=== PATIENT | female | born 1960 | race African-American/Black ===

== ENCOUNTER 2016-03-06 11:24 | Emergency (ER) | payer MEDICAID ==
[~2016-03-06] VITALS: Ht 162.6 cm; Wt 76.2 kg
[2016-03-06] MEDS ORDERED: SODIUM CHLORIDE 0.9% 1,000 ML IVB ONE (12:44)
[2016-03-06 12:45] LABS: Basophils # (auto) 0 uL; Basophils % (auto) 0.4 % (0.0-2.0); Eosinophils # (auto) 0.1 uL; Eosinophils % (auto) 1.1 % (0.0-7.0); Hematocrit 37.3 % (36.0-46.0); Hemoglobin 12.4 g/dL (12.2-16.2); Lymphocytes # (auto) 3.1 uL; Mean Corpuscular Hemoglobin 30.5 pg (28.0-32.0); Mean Corpuscular Hgb Conc. 33.2 g/dL (32.0-36.0); Mean Corpuscular Volume 91.8 fL (80.0-100.0); Monocytes # (auto) 0.8 uL; Monocytes % (auto) 10.6 % (0.0-12.0); Neutrophils # (auto) 3.7 uL; Neutrophils % (auto) 47.9 % (37.0-80.0); Platelet Count (auto) 246 10^3/uL (140-450); Red Cell Distribution Width 15.3 % (11.6-16.0); White Blood Cell 7.8 10^3/uL (4.4-10.8)
[2016-03-06] MEDS ORDERED: HYDROmorphone HCL 2 MG/ML VL IV ONE (12:45)
[2016-03-06] MEDS ORDERED: PROMETHAZINE HCL 25 MG/ML 1ML IV ONE (12:45)
[2016-03-06 13:06] LABS: Albumin 3.7 g/dL (3.4-5.0); BUN/Creatinine Ratio 16.3; Calcium 8.4 mg/dL (8.5-10.1); Potassium 4.2 mmol/L (3.5-5.1)
[2016-03-06 13:08] LABS: Bilirubin, Total 0.3 mg/dL (0.2-1.0); Magnesium 2.1 mg/dL (1.6-2.6); Total Protein 6.7 g/dL (6.4-8.2)
[2016-03-06 13:18] LABS: Urine Bilirubin Negative (Negative); Urine Blood TRACE /uL (Negative); Urine Color Yellow (Yellow); Urine Glucose Normal (Normal); Urine Ketone Negative (Negative); Urine Nitrite Negative (Negative); Urine RBC 2 /hpf (0 - 4); Urine Squamous Epithelial Cell FEW /hpf (<5); Urine Urobilinogen Normal (Negative); Urine pH 5.5 (5.0-8.0)
[2016-03-06 14:35] VITALS: BP 131/91
== END 2016-03-06 15:00 | disposition home or self-care (01) ==
LOC: ER 11:24
DX: R10.31 Right lower quadrant pain (principal)
CPT/HCPCS: 36415; 71020; 74176; 80053; 81001; 83690; 83735; 85025; 93005; 96361; 96374; 96375; 99285; J1170; J2550; J7030

== ENCOUNTER 2016-03-07 19:24 | Emergency (ER) | payer MEDICAID ==
[~2016-03-07] VITALS: Ht 162.6 cm; Wt 76.2 kg
[2016-03-07 21:15] LABS: Basophils # (auto) 0 uL; Basophils % (auto) 0.4 % (0.0-2.0); Eosinophils # (auto) 0.1 uL; Eosinophils % (auto) 1.3 % (0.0-7.0); Hemoglobin 12.7 g/dL (12.2-16.2); Lymphocytes # (auto) 4.7 uL; Lymphocytes % (auto) 53.1 % (10.0-50.0); Mean Corpuscular Hemoglobin 30.2 pg (28.0-32.0); Mean Corpuscular Hgb Conc. 32.5 g/dL (32.0-36.0); Mean Corpuscular Volume 92.9 fL (80.0-100.0); Mean Platelet Volume 9.4 fL (7.4-10.4); Monocytes # (auto) 0.7 uL; Monocytes % (auto) 7.8 % (0.0-12.0); Neutrophils # (auto) 3.3 uL; Neutrophils % (auto) 37.4 % (37.0-80.0); Platelet Count (auto) 281 10^3/uL (140-450); Red Cell Distribution Width 15.4 % (11.6-16.0); White Blood Cell 8.8 10^3/uL (4.4-10.8)
[2016-03-07 21:28] LABS: Albumin 3.8 g/dL (3.4-5.0); BUN/Creatinine Ratio 11.5; Calcium 8.7 mg/dL (8.5-10.1); Magnesium 2.1 mg/dL (1.6-2.6); Potassium 4.2 mmol/L (3.5-5.1)
[2016-03-07 21:30] LABS: Bilirubin, Total 0.2 mg/dL (0.2-1.0)
[2016-03-07 21:38] LABS: INR 1.01 (0.9-1.15); Partial Thromboplastin Time 26.7 sec (22.64-33.71); Prothrombin Time 10.4 sec (9.37-12.3)
[2016-03-08] MEDS ORDERED: KETOROLAC TROMETH 30 MG/ML 1ML VIAL IV ONE (07:00)
[2016-03-08] MEDS ORDERED: ONDANSETRON HCL 4 MG/2 ML VIAL IV ONE (07:15)
[2016-03-08 08:23] VITALS: BP 133/65
== END 2016-03-08 10:02 | disposition home or self-care (01) ==
LOC: ER 19:55
DX: R10.9 Unspecified abdominal pain (principal); J45.909 Unspecified asthma, uncomplicated; F12.10 Cannabis abuse, uncomplicated; F17.210 Nicotine dependence, cigarettes, uncomplicated; Z87.442 Personal history of urinary calculi; M79.7 Fibromyalgia; R11.2 Nausea with vomiting, unspecified; R50.9 Fever, unspecified
CPT/HCPCS: 36415; 71010; 74000; 80053; 83735; 84484; 85025; 85379; 85610; 85730; 93005; 96374; 96375; 99285; J1885; J2405

== ENCOUNTER 2016-04-30 09:11 | Emergency (ER) | payer MEDICAID ==
[~2016-04-30] VITALS: Ht 165.1 cm; Wt 76.2 kg
[2016-04-30 09:18] VITALS: BP 135/91
[2016-04-30 10:31] LABS: Basophils # (auto) 0 uL; Basophils % (auto) 0.5 % (0.0-2.0); Eosinophils # (auto) 0.2 uL; Eosinophils % (auto) 2.5 % (0.0-7.0); Hematocrit 40.4 % (36.0-46.0); Hemoglobin 13.3 g/dL (12.2-16.2); Lymphocytes # (auto) 3.8 uL; Lymphocytes % (auto) 52.1 % (10.0-50.0); Mean Corpuscular Hemoglobin 31.1 pg (28.0-32.0); Mean Corpuscular Hgb Conc. 32.9 g/dL (32.0-36.0); Mean Corpuscular Volume 94.5 fL (80.0-100.0); Mean Platelet Volume 9.3 fL (7.4-10.4); Monocytes # (auto) 0.9 uL; Monocytes % (auto) 12.1 % (0.0-12.0); Neutrophils # (auto) 2.4 uL; Neutrophils % (auto) 32.8 % (37.0-80.0); Platelet Count (auto) 256 10^3/uL (140-450); Red Cell Distribution Width 14.4 % (11.6-16.0); White Blood Cell 7.2 10^3/uL (4.4-10.8)
[2016-04-30 10:42] LABS: Albumin 3.9 g/dL (3.4-5.0); Alkaline Phosphatase 87 U/L (45-117); Aspartate Aminotransferase 25 U/L (15-37); BUN/Creatinine Ratio 11.9; Bilirubin, Total 0.3 mg/dL (0.2-1.0); Blood Urea Nitrogen 13 mg/dL (7-18); Calcium 8.5 mg/dL (8.5-10.1); Carbon Dioxide 24 mmol/L (21-32); GFR African American 67 mL/min; GFR Non-African American 55 mL/min; Glucose 97 mg/dL (74-106); Magnesium 2.3 mg/dL (1.6-2.6); Total Protein 7.2 g/dL (6.4-8.2)
[2016-04-30 10:53] LABS: Anion Gap 7 (5-15); Chloride 110 mmol/L (98-107); Potassium 4.4 mmol/L (3.5-5.1); Sodium 141 mmol/L (136-145)
[2016-04-30] MEDS ORDERED: KETOROLAC TROMETH 60MG/2ML VIAL IM ONE (11:00)
== END 2016-04-30 11:15 | disposition home or self-care (01) ==
LOC: ER 09:11
DX: S29.011A Strain of muscle and tendon of front wall of thorax, initial encounter (principal); S39.012A Strain of muscle, fascia and tendon of lower back, initial encounter; J45.909 Unspecified asthma, uncomplicated; F12.10 Cannabis abuse, uncomplicated; F17.210 Nicotine dependence, cigarettes, uncomplicated; X50.9XXA Other and unspecified overexertion or strenuous movements or postures, initial encounter; Y93.89 Activity, other specified; Y99.8 Other external cause status; Y92.098 Other place in other non-institutional residence as the place of occurrence of the external cause
CPT/HCPCS: 36415; 71020; 80053; 83735; 84484; 85025; 93005; 96372; 99285; J1885

== ENCOUNTER 2016-05-16 12:35 | Emergency (ER) | payer MEDICAID ==
[~2016-05-16] VITALS: Ht 162.6 cm; Wt 76.2 kg
[2016-05-16 12:52] VITALS: BP 99/61
== END 2016-05-16 15:23 | disposition left against medical advice (07) ==
LOC: ER 12:35
DX: M54.9 Dorsalgia, unspecified (principal); R11.2 Nausea with vomiting, unspecified; Z53.21 Procedure and treatment not carried out due to patient leaving prior to being seen by health care provider
CPT/HCPCS: 74176

== ENCOUNTER 2016-05-16 18:44 | Observation (INO) | payer MEDICAID ==
[~2016-05-16] VITALS: Ht 165.1 cm; Wt 76.2 kg
[2016-05-16 20:11] LABS: Basophils # (auto) 0.1 uL; Basophils % (auto) 0.7 % (0.0-2.0); Eosinophils # (auto) 0.1 uL; Eosinophils % (auto) 1.2 % (0.0-7.0); Hematocrit 39.7 % (36.0-46.0); Hemoglobin 13.3 g/dL (12.2-16.2); Lymphocytes % (auto) 48.6 % (10.0-50.0); Mean Corpuscular Hemoglobin 31.7 pg (28.0-32.0); Mean Corpuscular Hgb Conc. 33.4 g/dL (32.0-36.0); Mean Corpuscular Volume 94.8 fL (80.0-100.0); Mean Platelet Volume 9.4 fL (7.4-10.4); Monocytes # (auto) 0.8 uL; Monocytes % (auto) 9.4 % (0.0-12.0); Neutrophils # (auto) 3.3 uL; Neutrophils % (auto) 40.1 % (37.0-80.0); Platelet Count (auto) 267 10^3/uL (140-450); Red Cell Distribution Width 13.4 % (11.6-16.0); White Blood Cell 8.3 10^3/uL (4.4-10.8)
[2016-05-16 20:22] LABS: Urine Bilirubin Negative (Negative); Urine Blood TRACE /uL (Negative); Urine Color Yellow (Yellow); Urine Glucose Normal (Normal); Urine Ketone Negative (Negative); Urine Nitrite Negative (Negative); Urine RBC 6 /hpf (0 - 4); Urine Squamous Epithelial Cell FEW /hpf (<5); Urine Urobilinogen Normal (Negative)
[2016-05-16 20:30] LABS: Albumin 4.1 g/dL (3.4-5.0); BUN/Creatinine Ratio 11.2; Calcium 9.1 mg/dL (8.5-10.1)
[2016-05-16 20:33] LABS: Bilirubin, Total 0.3 mg/dL (0.2-1.0); Total Protein 7.4 g/dL (6.4-8.2)
[2016-05-16] MEDS ORDERED: ONDANSETRON HCL 4 MG/2 ML VIAL IV ONE (23:45)
[2016-05-16] MEDS ORDERED: SODIUM CHLORIDE 0.9% 1,000 ML IV ONE (23:45)
[2016-05-16] MEDS ORDERED: HYDROmorphone HCL 2 MG/ML VL IV ONE (23:45)
[2016-05-17 00:22] VITALS: BP 117/70
== END 2016-05-17 01:57 | disposition home or self-care (01) | DRG 251 ==
LOC: ER 18:44 → OVERFLOW 18:45 → UNDOADMOB 18:45 → OVERFLOW 23:46 → ER 05-17 01:57 → UNDODISOB 05-17 01:57
PROVIDERS: ADMIT Emergency Medicine; ATTEND Emergency Medicine
DX: R10.31 Right lower quadrant pain (principal); F17.210 Nicotine dependence, cigarettes, uncomplicated; K58.9 Irritable bowel syndrome, unspecified; J45.909 Unspecified asthma, uncomplicated; R11.2 Nausea with vomiting, unspecified; R30.0 Dysuria; R31.9 Hematuria, unspecified; R50.9 Fever, unspecified; Z90.710 Acquired absence of both cervix and uterus; Z87.442 Personal history of urinary calculi
CPT/HCPCS: 36415; 74176; 80053; 81001; 82150; 83690; 85025; 93005; 96361; 96374; 96375; G0378; J2405

== ENCOUNTER 2016-05-23 12:29 | Emergency (ER) | payer MEDICAID ==
[~2016-05-23] VITALS: Ht 165.1 cm; Wt 71.7 kg
[2016-05-23 13:42] LABS: Hematocrit 39.9 % (36.0-46.0); Hemoglobin 13.4 g/dL (12.2-16.2); Mean Corpuscular Hemoglobin 31.6 pg (28.0-32.0); Mean Corpuscular Hgb Conc. 33.4 g/dL (32.0-36.0); Mean Corpuscular Volume 94.5 fL (80.0-100.0); Mean Platelet Volume 9.2 fL (7.4-10.4); Platelet Count (auto) 274 10^3/uL (140-450); Red Cell Distribution Width 13.2 % (11.6-16.0); White Blood Cell 7.1 10^3/uL (4.4-10.8)
[2016-05-23 14:13] LABS: Metamyelocytes % 0; Myelocytes % 0; Promyelocytes % 0; Reactive Lymphocytes 0
[2016-05-23 14:25] LABS: Alkaline Phosphatase 86 U/L (45-117); Anion Gap 11 (5-15); Aspartate Aminotransferase 19 U/L (15-37); BUN/Creatinine Ratio 12.2; Bilirubin, Total 0.4 mg/dL (0.2-1.0); Blood Urea Nitrogen 12 mg/dL (7-18); Calcium 9.5 mg/dL (8.5-10.1); Carbon Dioxide 27 mmol/L (21-32); Chloride 109 mmol/L (98-107); GFR African American 75 mL/min; GFR Non-African American 62 mL/min; Glucose 104 mg/dL (74-106); Magnesium 2.2 mg/dL (1.6-2.6); Potassium 3.8 mmol/L (3.5-5.1); Sodium 147 mmol/L (136-145); Total Protein 7.3 g/dL (6.4-8.2)
[2016-05-23 14:28] LABS: INR 1.04 (0.9-1.15); Partial Thromboplastin Time 28.9 sec (22.64-33.71); Prothrombin Time 10.7 sec (9.37-12.3)
[2016-05-23 15:00] LABS: Platelet Estimate Adequate; RBC Morphology Normal
[2016-05-23 16:56] VITALS: BP 133/84
[2016-05-23] MEDS: HYDROcodone-ACET 10/325MG TAB PO ONE (18:04)
[2016-05-23] MEDS: SODIUM CHLORIDE 0.9% 1,000 ML IV ONE (18:04)
== END 2016-05-23 18:48 | disposition home or self-care (01) ==
LOC: ER 12:29
DX: M94.0 Chondrocostal junction syndrome [Tietze] (principal); J45.909 Unspecified asthma, uncomplicated; E78.5 Hyperlipidemia, unspecified; F17.210 Nicotine dependence, cigarettes, uncomplicated; F12.10 Cannabis abuse, uncomplicated; Z90.710 Acquired absence of both cervix and uterus; Z90.89 Acquired absence of other organs; Z87.442 Personal history of urinary calculi; Z88.6 Allergy status to analgesic agent; Z88.8 Allergy status to other drugs, medicaments and biological substances
CPT/HCPCS: 36415; 71020; 80053; 83735; 84484; 85007; 85027; 85379; 85610; 85730; 93005; 94761; 96360; 99285; J7030

== ENCOUNTER 2016-07-14 17:09 | Emergency (ER) | payer MEDICAID ==
[~2016-07-14] VITALS: Ht 157.5 cm; Wt 73.5 kg
[2016-07-14 17:23] VITALS: BP 122/94
[2016-07-14 18:45] LABS: Anion Gap 8 (5-15); Aspartate Aminotransferase 18 U/L (15-37); BUN/Creatinine Ratio 6.1; Blood Urea Nitrogen 6 mg/dL (7-18); Calcium 9.5 mg/dL (8.5-10.1); Carbon Dioxide 26 mmol/L (21-32); Chloride 110 mmol/L (98-107); GFR African American 75 mL/min; GFR Non-African American 62 mL/min; Glucose 88 mg/dL (74-106); Sodium 144 mmol/L (136-145)
[2016-07-14 18:50] LABS: Alkaline Phosphatase 82 U/L (45-117); Bilirubin, Total 0.5 mg/dL (0.2-1.0); Total Protein 7.1 g/dL (6.4-8.2)
[2016-07-14 19:00] LABS: Basophils # (auto) 0 uL; Basophils % (auto) 0.6 % (0.0-2.0); Eosinophils # (auto) 0.2 uL; Eosinophils % (auto) 3.1 % (0.0-7.0); Hematocrit 43.1 % (36.0-46.0); Hemoglobin 14.8 g/dL (12.2-16.2); Lymphocytes # (auto) 3.1 uL; Lymphocytes % (auto) 52.5 % (10.0-50.0); Mean Corpuscular Hgb Conc. 34.4 g/dL (32.0-36.0); Mean Platelet Volume 9.9 fL (7.4-10.4); Monocytes # (auto) 0.6 uL; Monocytes % (auto) 10.7 % (0.0-12.0); Neutrophils % (auto) 33.1 % (37.0-80.0); Platelet Count (auto) 258 10^3/uL (140-450); SUSPECT VIEW TRANSMISSION
[2016-07-14 20:16] LABS: Urine Bilirubin Negative (Negative); Urine Blood TRACE /uL (Negative); Urine Color Yellow (Yellow); Urine Glucose Normal (Normal); Urine Ketone Negative (Negative); Urine Nitrite Negative (Negative); Urine RBC 6 /hpf (0 - 4); Urine Squamous Epithelial Cell FEW /hpf (<5); Urine Urobilinogen Normal (Negative); Urine pH 5.5 (5.0-8.0)
== END 2016-07-14 23:35 | disposition left against medical advice (07) ==
LOC: ER 17:11
DX: R10.30 Lower abdominal pain, unspecified (principal); M54.5 Low back pain; R51 Headache; Z53.21 Procedure and treatment not carried out due to patient leaving prior to being seen by health care provider
CPT/HCPCS: 36415; 80053; 81001; 81025; 84484; 85025; 93005

== ENCOUNTER 2016-07-21 11:11 | Inpatient (IN) | payer MEDICAID ==
[~2016-07-21] VITALS: Ht 165.1 cm; Wt 71.5 kg
[2016-07-21 11:44] LABS: Hematocrit 39.8 % (36.0-46.0); Hemoglobin 13.4 g/dL (12.2-16.2); Mean Corpuscular Hemoglobin 31.4 pg (28.0-32.0); Mean Corpuscular Hgb Conc. 33.5 g/dL (32.0-36.0); Mean Corpuscular Volume 93.6 fL (80.0-100.0); Mean Platelet Volume 9.4 fL (7.4-10.4); Platelet Count (auto) 247 10^3/uL (140-450); White Blood Cell 6.6 10^3/uL (4.4-10.8)
[2016-07-21 11:46] LABS: Metamyelocytes % 0; Myelocytes % 0; Promyelocytes % 0; Reactive Lymphocytes 0
[2016-07-21 12:07] LABS: Platelet Estimate Adequate
[2016-07-21 12:09] LABS: Albumin 4.1 g/dL (3.4-5.0); Alkaline Phosphatase 76 U/L (45-117); Anion Gap 7 (5-15); Aspartate Aminotransferase 17 U/L (15-37); BUN/Creatinine Ratio 13.1; Bilirubin, Total 0.6 mg/dL (0.2-1.0); Blood Urea Nitrogen 13 mg/dL (7-18); Calcium 9.1 mg/dL (8.5-10.1); Carbon Dioxide 27 mmol/L (21-32); Chloride 106 mmol/L (98-107); GFR African American 75 mL/min; GFR Non-African American 62 mL/min; Glucose 113 mg/dL (74-106); Potassium 3.9 mmol/L (3.5-5.1); Sodium 140 mmol/L (136-145); Total Protein 6.8 g/dL (6.4-8.2)
[2016-07-21] MEDS ORDERED: ONDANSETRON HCL 4 MG/2 ML VIAL IV ONE (13:15)
[2016-07-21] MEDS ORDERED: HYDROmorphone HCL 2 MG/ML VL IV ONE ×2 (13:15→20:45)
[2016-07-21] MEDS ORDERED: SODIUM CHLORIDE 0.9% 1,000 ML IV ONE (13:15)
[2016-07-21 13:31] LABS: Urine Bilirubin Negative (Negative); Urine Blood Negative /uL (Negative); Urine Color Yellow (Yellow); Urine Glucose Normal (Normal); Urine Ketone Negative (Negative); Urine Mucus FEW (None Seen); Urine Nitrite Negative (Negative); Urine RBC 2 /hpf (0 - 4); Urine Squamous Epithelial Cell FEW /hpf (<5); Urine Urobilinogen Normal (Negative); Urine pH 5.5 (5.0-8.0)
[2016-07-21] MEDS ORDERED: NITROGLYCERIN 0.4 MG SL TAB SL PRN (15:30)
[2016-07-21] MEDS ORDERED: ACETAMINOPHEN 500 MG TAB PO PRN (15:30)
[2016-07-21] MEDS ORDERED: TEMAZEPAM 15 MG CAP PO PRN (15:30)
[2016-07-21] MEDS: SODIUM CHLORIDE 0.9% 1,000 ML IV SCH (16:23)
[2016-07-21] MEDS: FAMOTIDINE (10MG/ML) 2ML VL IV SCH (16:25)
[2016-07-21] MEDS ORDERED: cefTRIAXone 1GM/50ML D5W 50 ML IV ONE (16:30)
[2016-07-21] MEDS: HYDROcodone-ACET 5/325MG TAB PO PRN (17:05)
[2016-07-21] MEDS: metroNIDAZOLE 500MG/100ML 100 ML IV SCH (18:45)
[2016-07-21] MEDS: PROMETHAZINE HCL 25 MG/ML 1ML IV PRN (20:44)
[2016-07-21 20:51] VITALS: BP 142/102
[2016-07-21] MEDS: LORazepam 0.5 MG TAB PO PRN (23:09)
[2016-07-22] MEDS: metroNIDAZOLE 500MG/100ML 100 ML IV SCH ×4 (01:15→17:29)
[2016-07-22] MEDS: SODIUM CHLORIDE 0.9% 1,000 ML IV SCH ×3 (01:30→21:30)
[2016-07-22 04:51] VITALS: BP 117/67
[2016-07-22] MEDS: FAMOTIDINE (10MG/ML) 2ML VL IV SCH ×2 (05:27→17:29)
[2016-07-22] MEDS: PROMETHAZINE HCL 25 MG/ML 1ML IV PRN ×3 (05:28→14:28)
[2016-07-22] MEDS: HYDROcodone-ACET 5/325MG TAB PO PRN ×3 (05:28→17:29)
[2016-07-22 08:00] VITALS: BP 130/76
[2016-07-22] MEDS: cefTRIAXone 1GM/50ML D5W 50 ML IV SCH (08:38)
[2016-07-22 09:00] VITALS: BP 130/76
[2016-07-22] MEDS: LORazepam 0.5 MG TAB PO PRN ×2 (09:50→20:54)
[2016-07-22 13:00] VITALS: BP 113/69
[2016-07-22 17:00] VITALS: BP 151/93
[2016-07-22 22:00] VITALS: BP 128/75
[2016-07-23] MEDS: metroNIDAZOLE 500MG/100ML 100 ML IV SCH ×3 (00:21→11:04)
[2016-07-23] MEDS: HYDROcodone-ACET 5/325MG TAB PO PRN ×3 (00:25→12:58)
[2016-07-23 05:00] VITALS: BP 141/84
[2016-07-23] MEDS: FAMOTIDINE (10MG/ML) 2ML VL IV SCH (05:53)
[2016-07-23] MEDS: LORazepam 0.5 MG TAB PO PRN ×2 (06:04→13:40)
[2016-07-23] MEDS: SODIUM CHLORIDE 0.9% 1,000 ML IV SCH (07:51)
[2016-07-23 08:00] VITALS: BP 145/90
[2016-07-23] MEDS: cefTRIAXone 1GM/50ML D5W 50 ML IV SCH (08:01)
[2016-07-23 08:34] VITALS: BP 145/90
[2016-07-23] MEDS: PROMETHAZINE HCL 25 MG/ML 1ML IV PRN (10:45)
[2016-07-23 13:00] VITALS: BP 146/89
[2016-07-23 15:39] VITALS: BP 145/90
== END 2016-07-23 15:55 | disposition home or self-care (01) | DRG 251 ==
LOC: ER 11:11 → TELE 11:12 → TELE-WESTW 20:54
PROVIDERS: ADMIT Internal Medicine; ATTEND Internal Medicine
DX: R10.9 Unspecified abdominal pain (principal); F11.20 Opioid dependence, uncomplicated; E78.5 Hyperlipidemia, unspecified; J45.909 Unspecified asthma, uncomplicated; G89.4 Chronic pain syndrome; M54.9 Dorsalgia, unspecified; F19.10 Other psychoactive substance abuse, uncomplicated; F17.210 Nicotine dependence, cigarettes, uncomplicated; K56.7 Ileus, unspecified; Z82.49 Family history of ischemic heart disease and other diseases of the circulatory system; Z88.5 Allergy status to narcotic agent; Z87.442 Personal history of urinary calculi; Z90.49 Acquired absence of other specified parts of digestive tract; Z90.89 Acquired absence of other organs; Z88.8 Allergy status to other drugs, medicaments and biological substances; Z90.710 Acquired absence of both cervix and uterus; Z83.3 Family history of diabetes mellitus
CPT/HCPCS: 36415; 71010; 74176; 76705; 80053; 80307; 81001; 82150; 83690; 84484; 85007; 85027; 85652; 86141; 93005; 96361; 96374; 96375; 96376; J0696; J2405; J3490

== ENCOUNTER 2016-08-08 07:12 | Emergency (ER) | payer MEDICAID ==
[~2016-08-08] VITALS: Ht 165.1 cm; Wt 67.6 kg
[2016-08-08 08:08] LABS: Basophils # (auto) 0 uL; Basophils % (auto) 0.4 % (0.0-2.0); Eosinophils # (auto) 0.1 uL; Eosinophils % (auto) 1.5 % (0.0-7.0); Hematocrit 41.9 % (36.0-46.0); Hemoglobin 14.4 g/dL (12.2-16.2); Lymphocytes # (auto) 2.5 uL; Lymphocytes % (auto) 42.9 % (10.0-50.0); Mean Corpuscular Hemoglobin 31.9 pg (28.0-32.0); Mean Corpuscular Hgb Conc. 34.3 g/dL (32.0-36.0); Mean Corpuscular Volume 92.9 fL (80.0-100.0); Mean Platelet Volume 9.4 fL (7.4-10.4); Monocytes # (auto) 0.6 uL; Monocytes % (auto) 10.5 % (0.0-12.0); Neutrophils # (auto) 2.6 uL; Neutrophils % (auto) 44.7 % (37.0-80.0); Platelet Count (auto) 218 10^3/uL (140-450); White Blood Cell 5.9 10^3/uL (4.4-10.8)
[2016-08-08 08:29] LABS: Albumin 4.1 g/dL (3.4-5.0); Anion Gap 8 (5-15); Blood Urea Nitrogen 16 mg/dL (7-18); Calcium 9.4 mg/dL (8.5-10.1); Carbon Dioxide 29 mmol/L (21-32); Chloride 106 mmol/L (98-107); Glucose 113 mg/dL (74-106); Potassium 4.4 mmol/L (3.5-5.1); Sodium 143 mmol/L (136-145)
[2016-08-08 08:31] LABS: Aspartate Aminotransferase 17 U/L (15-37); BUN/Creatinine Ratio 13.8; GFR African American 62 mL/min; GFR Non-African American 51 mL/min
[2016-08-08 08:40] LABS: Alkaline Phosphatase 86 U/L (45-117); Bilirubin, Total 0.4 mg/dL (0.2-1.0); Total Protein 7.4 g/dL (6.4-8.2)
[2016-08-08 08:54] VITALS: BP 139/88
[2016-08-08] MEDS ORDERED: SODIUM CHLORIDE 0.9% 1,000 ML IV ONE (08:57)
[2016-08-08] MEDS ORDERED: cloNIDine HCL 0.1 MG TAB PO ONE (09:00)
[2016-08-08] MEDS ORDERED: HYDROcodone-ACET 10/325MG TAB PO ONE (09:00)
[2016-08-08] MEDS ORDERED: LORazepam 2MG/ML-1ML VIAL IV ONE (09:00)
[2016-08-08] MEDS ORDERED: ONDANSETRON HCL 4 MG/2 ML VIAL IV ONE (09:00)
== END 2016-08-08 11:16 | disposition home or self-care (01) ==
LOC: EDBD 07:12 → ER 07:14
DX: R10.13 Epigastric pain (principal); R11.2 Nausea with vomiting, unspecified; G89.29 Other chronic pain; M54.9 Dorsalgia, unspecified; J45.909 Unspecified asthma, uncomplicated; E78.5 Hyperlipidemia, unspecified; F17.210 Nicotine dependence, cigarettes, uncomplicated; F12.10 Cannabis abuse, uncomplicated; Z88.6 Allergy status to analgesic agent; Z88.8 Allergy status to other drugs, medicaments and biological substances; Z90.710 Acquired absence of both cervix and uterus; Z87.442 Personal history of urinary calculi
CPT/HCPCS: 36415; 74176; 80053; 83690; 84484; 85025; 93005; 94761; 96361; 96374; 96375; 99285; J2060; J2405; J7030

== ENCOUNTER 2017-06-21 17:50 | Emergency (ER) | payer MEDICAID ==
[~2017-06-21] VITALS: Ht 154.9 cm; Wt 68.0 kg
[2017-06-21 19:35] LABS: White Blood Cell 8.1 10^3/uL (4.4-10.8)
[2017-06-21 19:38] LABS: Hematocrit 44.1 % (36.0-46.0); Hemoglobin 14.8 g/dL (12.2-16.2); Mean Corpuscular Hemoglobin 31.3 pg (28.0-32.0); Mean Corpuscular Hgb Conc. 33.5 g/dL (32.0-36.0); Mean Corpuscular Volume 93.4 fL (80.0-100.0); Platelet Count (auto) 239 10^3/uL (140-450); Red Blood Cells 4.72 10^6/uL (4.0-5.20)
[2017-06-21 19:41] LABS: Albumin 4.4 g/dL (3.4-5.0); Calcium 9.4 mg/dL (8.5-10.1); Potassium 3.7 mmol/L (3.5-5.1)
[2017-06-21 19:43] LABS: BUN/Creatinine Ratio 10.7; Band Neutrophils % (manual) 0; Basophils % (manual) 0 (0.0-2.0); Blast Cells 0; Metamyelocytes % 0; Myelocytes % 0; Promyelocytes % 0
[2017-06-21 19:55] LABS: Bilirubin, Total 0.3 mg/dL (0.2-1.0); Total Protein 7.7 g/dL (6.4-8.2)
[2017-06-21 20:37] LABS: Lymphocytes % (manual) 62 (10.0-50.0); Monocytes % (manual) 9 (0-12)
[2017-06-21 20:38] LABS: Eosinophils % (manual) 3 (0-7); Reactive Lymphocytes 1
[2017-06-21 22:58] LABS: Urine Bacteria FEW /hpf (None Seen); Urine Blood TRACE /uL (Negative); Urine Mucus FEW (None Seen); Urine Specific Gravity 1.027 (1.001-1.035); Urine WBC 2 /hpf (0 - 5)
[2017-06-22 07:09] VITALS: BP 143/82
[2017-06-22] MEDS ORDERED: NALBUPHINE HCL 10 MG/1ml INJECTION IM ONE (07:15)
== END 2017-06-22 07:53 | disposition home or self-care (01) ==
LOC: ER 17:53
DX: R10.31 Right lower quadrant pain (principal); J45.909 Unspecified asthma, uncomplicated; F17.210 Nicotine dependence, cigarettes, uncomplicated; Z87.442 Personal history of urinary calculi; Z90.49 Acquired absence of other specified parts of digestive tract; Z88.6 Allergy status to analgesic agent; Z88.8 Allergy status to other drugs, medicaments and biological substances; Z90.710 Acquired absence of both cervix and uterus
CPT/HCPCS: 36415; 74176; 80053; 81001; 82150; 83690; 84484; 85007; 85027; 93005; 96372; 99285; J2300

== ENCOUNTER 2017-06-29 15:16 | Emergency (ER) | payer MEDICAID ==
[~2017-06-29] VITALS: Ht 162.6 cm; Wt 68.0 kg
[2017-06-29] MEDS ORDERED: SODIUM CHLORIDE 0.9% 1,000 ML IVB ONE (16:03)
[2017-06-29 16:12] LABS: Alanine Aminotransferase 19 U/L (13-56); Albumin 3.6 g/dL (3.4-5.0); Anion Gap 4 (5-15); Aspartate Aminotransferase 18 U/L (15-37); BUN/Creatinine Ratio 15.1; Blood Urea Nitrogen 14 mg/dL (7-18); Calcium 8.5 mg/dL (8.5-10.1); Carbon Dioxide 28 mmol/L (21-32); Chloride 114 mmol/L (98-107); GFR African American 80 mL/min; GFR Non-African American 66 mL/min; Glucose 97 mg/dL (74-106); Sodium 146 mmol/L (136-145)
[2017-06-29] MEDS ORDERED: ONDANSETRON HCL 4 MG/2 ML VIAL IV ONE (16:15)
[2017-06-29] MEDS ORDERED: KETOROLAC TROMETH 30 MG/ML 1ML VIAL IV ONE (16:15)
[2017-06-29 16:17] LABS: Alkaline Phosphatase 79 U/L (45-117); Bilirubin, Total 0.2 mg/dL (0.2-1.0); Total Protein 6.6 g/dL (6.4-8.2)
[2017-06-29 16:47] LABS: Hemoglobin 12.6 g/dL (12.2-16.2); Mean Corpuscular Hemoglobin 30.8 pg (28.0-32.0); Mean Corpuscular Hgb Conc. 33.1 g/dL (32.0-36.0); Mean Corpuscular Volume 92.9 fL (80.0-100.0); Platelet Count (auto) 207 10^3/uL (140-450); Red Blood Cells 4.09 10^6/uL (4.0-5.20); White Blood Cell 6.5 10^3/uL (4.4-10.8)
[2017-06-29 16:52] LABS: Band Neutrophils % (manual) 0; Basophils % (manual) 0 (0.0-2.0); Blast Cells 0; Metamyelocytes % 0; Myelocytes % 0; Promyelocytes % 0
[2017-06-29 17:02] LABS: Magnesium 2.1 mg/dL (1.6-2.6)
[2017-06-29 17:12] LABS: Lymphocytes % (manual) 60 (10.0-50.0); Monocytes % (manual) 5 (0-12)
[2017-06-29 17:13] LABS: Eosinophils % (manual) 3 (0-7); Reactive Lymphocytes 2
[2017-06-29 18:23] VITALS: BP 121/78
[2017-06-29 19:28] LABS: Urine Bacteria NONE SEEN /hpf (None Seen); Urine Blood Negative /uL (Negative); Urine Mucus FEW (None Seen); Urine Specific Gravity 1.032 (1.001-1.035); Urine WBC 1 /hpf (0 - 5)
== END 2017-06-29 19:26 | disposition home or self-care (01) ==
LOC: ER 15:25
DX: R10.84 Generalized abdominal pain (principal); F17.210 Nicotine dependence, cigarettes, uncomplicated; F12.10 Cannabis abuse, uncomplicated; J45.909 Unspecified asthma, uncomplicated; Z90.710 Acquired absence of both cervix and uterus; Z90.49 Acquired absence of other specified parts of digestive tract; Z90.89 Acquired absence of other organs; Z88.8 Allergy status to other drugs, medicaments and biological substances
CPT/HCPCS: 36415; 80053; 81001; 83690; 83735; 84484; 85007; 85027; 93005; 94761; 96374; 96375; 99285; J1885; J2405

== ENCOUNTER 2024-05-05 14:24 | Inpatient (IN) | payer MEDICAID ==
[~2024-05-05] VITALS: Ht 165.1 cm; Wt 77.5 kg
--- NOTE | 2024-05-05 15:27 | DVH ---
INDICATION: sob TECHNIQUE: Frontal view of the chest. COMPARISON: None FINDINGS: . The heart and mediastinal contours are grossly unremarkable. There is no evidence of pleural disea se. The lungs are clear. The bony structures of the chest are intact without fracture. IMPRESSION: 1. No evidence of acute disease.
--- NOTE | 2024-05-05 15:34 | DVH ---
Exam: CT CT AB PEL WO CON-NO ORAL OR IV History: rlq pain Comparison Study: None available at time of dictation. Technique: Multidetector spiral CT of the abdomen and pelvis was performed from lung bases to pubic s ymphysis. Imaging was performed without intravenous contrast. Coronal and sagittal multiplanar reform ats were obtained from the axial data set by the technologist. Radiation Dose : 1. Abdomen/Pelvis: CTDIvol 9.46 mGy, DLP 497.02 mGy*cm. Findings: Evaluation of vasculature and solid organs is limited due to lack of intravenous contrast use. Lung Bases: Bibasilar subsegmental atelectasis. Visualized portions of the heart and pericardium are unremarkable. Liver: The liver is normal in size. No focal lesions. Gallbladder and Biliary Tree: The gallbladder is surgically absent. No intrahepatic or extrahepatic b iliary ductal dilatation. Spleen: Unremarkable Pancreas: The pancreas is grossly unremarkable. Adrenal Glands: Unremarkable Kidneys: Kidneys are unremarkable without calculi or hydronephrosis. GI tract: The stomach is grossly normal in appearance. No evidence of small bowel wall thickening or abnormal dilatation to suggest bowel obstruction. The colon is unremarkable. The appendix is not visu alized, however no inflammatory changes in the right lower quadrant to suggest acute appendicitis. Peritoneum/mesentery/retroperitoneum. No evidence of free intraperitoneal air. No ascites. No evidenc e of suspicious lymphadenopathy. Abdominal Wall: Unremarkable. Vasculature: The visualized abdominal aorta is normal in size and caliber. Evaluation of abdominal a nd pelvic vessels is limited due to lack of intravenous contrast. Urinary Bladder: Grossly unremarkable for degree of distention. Pelvic Organs: Unremarkable Musculoskeletal: No aggressive focal bony lesions, acute fractures or dislocation. Posterior instrume nted fusion at L4-L5. IMPRESSION: 1. No acute abdominal or pelvic findings.
[2024-05-05] MEDS: ONDANSETRON HCL 4 MG/2 ML VIAL IV ONE ×2 (15:50→18:37)
[2024-05-05] MEDS: methylPREDNISolone SOD SUCC 125 MG/2 ML VL IV ONE (15:50)
[2024-05-05] MEDS: ALBUTEROL SULF 2.5 MG/0.5ML(0.5%) NEB SOLN NEB ONE ×2 (15:53→18:30)
[2024-05-05] MEDS: IPRATROPIUM BROM 0.5 MG/2.5ML INH SOL NEB ONE ×2 (15:53→18:29)
[2024-05-05] MEDS: fentaNYL CITRATE 100 MCG/2 ML VL IV ONE (15:57)
[2024-05-05 16:00] VITALS: PULSE 97; RESP 18; O2SAT 95
[2024-05-05 16:03] LABS: Alanine Aminotransferase 25 U/L (7-40); Albumin 4.6 g/dL (3.2-4.8); Alkaline Phosphatase 91 U/L (46-116); Anion Gap 10 (5-15); Aspartate Aminotransferase 36 U/L (13-40); BUN/Creatinine Ratio 18.2 (10.0-20.0); Calcium 10.3 mg/dL (8.7-10.4); Carbon Dioxide 25 mmol/L (20-31); Glucose 89 mg/dL (74-106); Sodium 143 mmol/L (136-145); Total Protein 6.6 g/dL (5.7-8.2)
[2024-05-05 16:04] LABS: Bilirubin, Total 0.5 mg/dL (0.2-1.0)
[2024-05-05 16:10] LABS: Basophils # (auto) 0 10 ^3/uL (0-0.2); Basophils % (auto) 0.5 % (0.0-2.0); Eosinophils # (auto) 0.1 10 ^3/uL (0-0.8); Eosinophils % (auto) 1.4 % (0.0-7.0); Hematocrit 38.5 % (36.0-46.0); Hemoglobin 13.2 g/dL (12.2-16.2); Lymphocytes # (auto) 3.7 10 ^3/uL (0.4-5.4); Lymphocytes % (auto) 40.5 % (10.0-50.0); Mean Corpuscular Hemoglobin 31.5 pg (28.0-32.0); Mean Corpuscular Hgb Conc. 34.3 g/dL (32.0-36.0); Mean Corpuscular Volume 91.8 fL (80.0-100.0); Monocytes # (auto) 0.9 10 ^3/uL (0-1.3); Monocytes % (auto) 10.2 % (0.0-12.0); Neutrophils # (auto) 4.4 10 ^3/uL (1.6-8.6); Neutrophils % (auto) 47.4 % (37.0-80.0); Nucleated Red Blood Cells % 0.2 %; Platelet Count (auto) 232 10^3/uL (140-450); Red Blood Cells 4.19 10^6/uL (4.0-5.20); Red Cell Distribution Width 13.1 % (11.8-14.3); White Blood Cell 9.2 10^3/uL (4.4-10.8)
[2024-05-05 16:39] LABS: Blood Urea Nitrogen 24 mg/dL (9-23); Chloride 108 mmol/L (98-107)
[2024-05-05 17:15] VITALS: PULSE 95; RESP 18; O2SAT 94
[2024-05-05 17:22] LABS: Urine Bacteria FEW /hpf (None Seen); Urine Blood 1+ /uL (Negative); Urine Clarity Clear (Clear); Urine Color Light-Yellow (Yellow); Urine Mucus FEW (None Seen); Urine Protein, UAD TRACE (Negative); Urine Specific Gravity 1.027 (1.001-1.035); Urine Squamous Epithelial Cell FEW /hpf (<5); Urine Urobilinogen Normal (Negative); Urine WBC 2 /HPF (0-5); Urine pH 5.5 (5.0-9.0)
[2024-05-05 18:20] VITALS: O2SAT 96
--- NOTE | 2024-05-05 18:20 | ED.PDOC ---
SOB-HPI HPI Comments 64y F who presents to the ED for chief complaint of shortness of breath. Pt states she has been having shortness of breath with associated chest tightness of the past 3 days. Pt states she has been having increasing chest pain when attempting to take deep breath, with associated exacerbation of symptoms while ambulating and no relieving factors. Pt has associated chills, sweats, bloody phlegm, nausea and diarrhea. Pt otherwise states she has history of COPD but states she is not on 02 at home but is prescribed an albuterol inhaler which she takes upon exacerbation of her shortness of breath but today had no relief. Pt also states she has been having R sided and RLQ abdominal pain, constant, with no noted exacerbating or relieving factors. Pt in the ED, noted to be speaking in short sentences and noted to getting short of breath when attempting to speak. Pt now in the ED, noted to placed on 2 L via nc and 02 sat at 97%, noted BP of 185/87 but otherwise has noted stable vitals in the ED. 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 Family History Family History: No family hx of DM, No family hx of Heart olinda, No family hx of HTN Social History Smoker: Cigarettes, Less Than 1 Pack/Day Alcohol: Denies ETOH Use Drugs: Marijuana Lives In: Home Constitutional: denies: chills, diaphoresis, fatigue, fever, malaise, sweats, weakness, others EENTM: reports: nose congestion; denies: blurred vision, double vision, ear bleeding, ear discharge, ear drainage, ear pain, ear ringing, eye pain, eye redness, hearing loss, mouth pain, mouth swelling, nasal discharge, nose bleeding, nose pain, photophobia, tearing, throat pain, throat swelling, voice changes, others Respiratory: reports: cough, shortness of breath; denies: hemoptysis, orthopnea, SOB at rest, SOB with excertion, stridor, wheezing, others Cardiovascular: denies: chest pain, dizzy spells, diaphoresis, Dyspnea on exertion, edema, irregular heart beat, left arm pain, lightheadedness, palpitations, PND, syncope, others Gastrointestinal: reports: diarrhea, nausea; denies: abdomen distended, abdominal pain, blood streaked bowels, constipated, dysphagia, difficulty swallowing, hematemesis, melena, poor appetite, poor fluid intake, rectal bleeding, rectal pain, vomiting, others Genitourinary: denies: abnormal vagina bleeding, burning, dyspareunia, dysuria, flank pain, frequency, hematuria, incontinence, pain, , vagina discharge, urgency, others Neurological: denies: dizziness, fainting, headache, left sided numbness, left sided weakness, numbness, paresthesia, pre-existing deficit, right sided numbness, right sided weakness, seizure, speech problems, tingling, tremors, weakness, others Musculoskeletal: denies: back pain, gout, joint pain, joint swelling, muscle pain, muscle stiffness, neck pain, others Integumetry: denies: bruises, change in color, change in hair/nails, dryness, laceration, lesions, lumps, rash, wounds, others Allergic/Immunocompromised: denies: Difficulty Healing, Frequent Infections, Hives, Itching, others Hematologic/Lymphatic: denies: anemia, blood clots, easy bleeding, easy b ruising, swollen glands, others Endocrine: denies: excessive hunger, excessive sweating, excessive thirst, excessive urination, flushing, intolerance to cold, intolerance to heat, unexplained weight gain, unexplained weight loss, others Psychiatric: denies: anxiety, bipolar disorder, depression, hopeless, panic disorder, schizophrenia, sleepless, suicidal, others All Other Systems: Reviewed and Negative Physical Exam General Appearance: Mild Distress HEENT: PERRL/EOMI Neck: Full Range of Motion, Normal Inspection Respiratory: Decreased Breath Sounds, No Accessory Muscle Use, Respiratory Distress, Rhonchi Cardiovascular: No Edema, No JVD, Regular Rate/Rhythm Breast Exam: Deferred Gastrointestinal: RLQ, Soft, Tenderness Genitalia: Deferred Pelvic: Deferred Rectal: Deferred Extremities: Normal inspection, Normal range of motion, Non-tender, No pedal edema Neurologic: Alert (Oriented x4), Normal Affect, Normal Mood, Other (No gross focal deficit) Cerebellar Function: NOT DONE Reflexes: NOT DONE Skin: Dry, Normal Color, Warm Lymphatic: NOT DONE EKG EKG : Comments Sinus tach, rate 104, normal NE and QRS intervals, QTC 474, normal axis, normal QRS, nonspecific T changes. Was a procedure done? Was a procedure done?: No Differential Dx Differential Diagnosis: Bronchitis, COPD, Hypertension, Hyperventilation, Pneumonia, Pulmonary Embolism, Respiratory Distress, Pharyngitis, URI Comments Influeza A and B, COVID, PNA, sepsis, X-Ray, Labs, Meds, VS Vital Signs Date Time Temp Pulse Resp B/P (MAP) Pulse Ox O2 Delivery O2 Flow Rate FiO2 05/05/24 20:00 90 05/05/24 19:36 88 18 96 Nasal Cannula* 2 28 05/05/24 19:36 98.2 86 18 185/87 (119) 97 98.2 05/05/24 18:23 91 05/05/24 18:20 16 96 Nasal Cannula* 3 32 05/05/24 17:15 98.2 95 18 124/88 (100) 88 98.2 05/05/24 17:15 95 18 94 Nasal Cannula* 2 28 05/05/24 16:00 98.0 97 18 120/90 (100) 95 98.0 05/05/24 16:00 97 18 95 Room Air* 0 21 05/05/24 15:57 120/90 05/05/24 15:54 20 94 Room Air* 0 21 05/05/24 14:46 17 96 Room Air* 0 21 05/05/24 14:39 98.2 109 16 145/103 (117) 96 Lab Test 05/05/24 19:00 05/05/24 17:00 05/05/24 16:44 05/05/24 15:26 Range/Units Influenza Type A Antigen Negative Negative Influenza Type B Antigen Negative Negative SARS-CoV-2 Antigen (Rapid) Negative NEGATIVE Urine Color Light-yellow Yellow Urine Clarity Clear Clear Urine pH 5.5 5.0-9.0 Urine Specific [place] 1.027 1.001-1.035 Urine Protein Trace H Negative Urine Ketones Negative Negative Urine Blood 1+ H Negative /uL Urine Nitrite Negative Negative Urine Bilirubin Negative Negative Urine Urobilinogen Normal Negative mg/dL Urine Leukocyte Esterase Negative Negative /uL Urine RBC 2 0 - 4 /hpf Urine Microscopic WBC 2 0-5 /HPF Urine Squamous Epithelial Cells Few <5 /hpf Urine Bacteria Few H None Seen /hpf Urine Mucus Few None Seen Urine Glucose Normal Normal mg/dL Troponin I High Sensitivity 5 7 </=34 ng/L White Blood Count 9.2 4.4-10.8 10^3/uL Red Blood Count 4.19 4.0-5.20 10^6/uL Hemoglobin 13.2 12.2-16.2 g/dL Hematocrit 38.5 36.0-46.0 % Mean Corpuscular Volume 91.8 80.0-100.0 fL Mean Corpuscular Hemoglobin 31.5 28.0-32.0 pg Mean Corpuscular Hemoglobin Concent 34.3 32.0-36.0 g/dL Red Cell Distribution Width 13.1 11.8-14.3 % Platelet Count 232 140-450 10^3/uL Mean Platelet Volume 9.4 6.9-10.8 fL Neutrophils (%) (Auto) 47.4 37.0-80.0 % Lymphocytes (%) (Auto) 40.5 10.0-50.0 % Monocytes (%) (Auto) 10.2 0.0-12.0 % Eosinophils (%) (Auto) 1.4 0.0-7.0 % Basophils (%) (Auto) 0.5 0.0-2.0 % Neutrophils # (Auto) 4.4 1.6-8.6 10 ^3/uL Lymphocytes # (Auto) 3.7 0.4-5.4 10 ^3/uL Monocytes # (Auto) 0.9 0-1.3 10 ^3/uL Eosinophils # (Auto) 0.1 0-0.8 10 ^3/uL Basophils # (Auto) 0 0-0.2 10 ^3/uL Nucleated Red Blood Cells 0.2 % Sodium Level 143 136-145 mmol/L Potassium Level 4.0 3.5-5.1 mmol/L Chloride Level 108 H 98-107 mmol/L Carbon Dioxide Level 25 20-31 mmol/L Anion Gap 10 5-15 Blood Urea Nitrogen 24 H 9-23 mg/dL Creatinine 1.32 H 0.550-1.02 mg/dL Glomerular Filtration Rate Calc 45 >90 mL/min BUN/Creatinine Ratio 18.2 10.0-20.0 Serum Glucose 89 74-106 mg/dL Lactic Acid Level 1.2 0.4-2.0 mmol/L Calcium Level 10.3 8.7-10.4 mg/dL Total Bilirubin 0.5 0.2-1.0 mg/dL Aspartate Amino Transferase (AST) 36 13-40 U/L Alanine Aminotransferase (ALT) 25 7-40 U/L Alkaline Phosphatase 91 46-116 U/L B-Type Natriuretic Peptide 175.85 0-100 pg/mL Total Protein 6.6 5.7-8.2 g/dL Albumin 4.6 3.2-4.8 g/dL Current Medications Medications (Trade) Dose Ordered Sig/Tl Route Start Time Stop Time Status Last Admin Albuterol (Ventolin Medneb) 5 mg ONCE ONCE NEB 05/05/24 15:00 05/05/24 15:03 DC 05/05/24 15:53 Ipratropium [place] (Atrovent Medneb) 0.5 mg ONCE ONCE NEB 05/05/24 15:00 05/05/24 15:03 DC 05/05/24 15:53 Methylprednisolone Sodium Succinate (Solu Medrol) 125 mg ONCE ONCE IV 05/05/24 15:00 05/05/24 15:03 DC 05/05/24 15:50 Ondansetron HCl (Zofran) 4 mg ONCE ONCE IV 05/05/24 15:00 05/05/24 15:03 DC 05/05/24 15:50 Fentanyl Citrate 12.5 mcg ONCE ONCE IV 05/05/24 15:00 05/05/24 15:03 DC 05/05/24 15:57 Sodium Chloride 1,000 ml @ 1,000 mls/hr Q1H ONCE IV 05/05/24 18:15 05/05/24 19:14 DC 05/05/24 18:37 Ondansetron HCl (Zofran) 4 mg ONCE ONCE IV 05/05/24 18:15 05/05/24 18:20 DC 05/05/24 18:37 Albuterol (Ventolin Medneb) 5 mg ONCE ONCE NEB 05/05/24 18:15 05/05/24 18:20 DC 05/05/24 18:30 Ipratropium [place] (Atrovent Medneb) 0.5 mg ONCE ONCE NEB 05/05/24 18:15 05/05/24 18:20 DC 05/05/24 18:29 Ceftriaxone Sodium 50 ml @ 100 mls/hr ONCE ONCE IV 05/05/24 18:30 05/05/24 18:59 DC 05/05/24 20:43 Azithromycin 250 ml @ 125 mls/hr ONCE ONCE IV 05/05/24 18:30 05/05/24 20:29 DC 05/05/24 21:15 [place] [id number] Ph: [phone] DIAGNOSTIC IMAGING Diagnostic Imaging Report : [id number] Signed PATIENT: AYDIN MARTINEZ ACCT: [id number] UNIT: [id number] : 1960 LOC: ER ROOM / BED: / AGE / SEX: 64 / F ADM STATUS: REG ER SERVICE 1500 ORDERING PHYSICIAN: TRELL HOOVER MD PROCEDURE(s): CXRP - CHEST PORTABLE REASON: sob ORDER NUMBER(s): [id number], ACCESSION NUMBER(s): [id number] INDICATION: sob TECHNIQUE: Frontal view of the chest. COMPARISON: None FINDINGS: . The heart and mediastinal contours are grossly unremarkable. There is no evidence of pleural disease. The lungs are clear. The bony structures of the chest are intact without fracture. IMPRESSION: 1. No evidence of acute disease. ATED BY: TRUONG MARQUEZ MD DICTATED DATE/TIME: 05/05/24 152 SIGNED BY: TRUONG MARQUEZ MD SIGNED DATE/TIME: 05/05/24 1525 CC: [place] [id number] Ph: [phone] DIAGNOSTIC IMAGING Diagnostic Imaging Report : [id number] Signed PATIENT: AYDIN MARTINEZ ACCT: [id number] UNIT: [id number] : 1960 LOC: ER ROOM / BED: / AGE / SEX: 64 / F ADM STATUS: REG ER SERVICE 1500 ORDERING PHYSICIAN: TRELL HOOVER MD PROCEDURE(s): ABPL - CT AB PEL WO CON-NO ORAL OR IV REASON: rlq pain ORDER NUMBER(s): [id number], ACCESSION NUMBER(s): [id number] Exam: CT CT AB PEL WO CON-NO ORAL OR IV History: rlq pain Comparison Study: None available at time of dictation. Technique: Multidetector spiral CT of the abdomen and pelvis was performed from lung bases to pubic symphysis. Imaging was performed without intravenous contrast. Coronal and sagittal multiplanar reformats were obtained from the axial data set by the technologist. Radiation Dose : 1. Abdomen/Pelvis: CTDIvol 9.46 mGy, DLP 497.02 mGy*cm. Findings: Evaluation of vasculature and solid organs is limited due to lack of intravenous contrast use. Lung Bases: Bibasilar subsegmental atelectasis. Visualized portions of the heart and pericardium are unremarkable. Liver: The liver is normal in size. No focal lesions. Gallbladder and Biliary Tree: The gallbladder is surgically absent. No intrahepatic or extrahepatic biliary ductal dilatation. Spleen: Unremarkable Pancreas: The pancreas is grossly unremarkable. Adrenal Glands: Unremarkable Kidneys: Kidneys are unremarkable without calculi or hydronephrosis. GI tract: The stomach is grossly normal in appearance. No evidence of small bowel wall thickening or abnormal dilatation to suggest bowel obstruction. The colon is unremarkable. The appendix is not visualized, however no inflammatory changes in the right lower quadrant to suggest acute appendicitis. Peritoneum/mesentery/retroperitoneum. No evidence of free intraperitoneal air. No ascites. No evidence of suspicious lymphadenopathy. Abdominal Wall: Unremarkable. Vasculature: The visualized abdominal aorta is normal in size and caliber. Evaluation of abdominal and pelvic vessels is limited due to lack of intravenous contrast. Urinary Bladder: Grossly unremarkable for degree of distention. Pelvic Organs: Unremarkable Musculoskeletal: No aggressive focal bony lesions, acute fractures or dislocation. Posterior instrumented fusion at L4-L5. IMPRESSION: 1. No acute abdominal or pelvic findings. ATED BY: JOSUE AYALA MD DICTATED DATE/TIME: 05/05/24 153 SIGNED BY: JOSUE AYALA MD SIGNED DATE/TIME: 05/05/24 153 CC: X-Ray, Labs, Meds, VS Comment 64-year-old female with a history of COPD presenting with pleuritic chest pain and shortness of breath for the last 3 days, associated with chills, sweating, bloody sputum, nausea, vomiting, diarrhea and right lower quadrant pain Vitals remarkable for heart rate 109, BP 145/103 Exam remarkable for audible wheezing, right lower quadrant tenderness to palpation Rhythm strip independently interpreted by me: Sinus tach, rate 109, no ectopy. Chest x-ray IMPRESSION: 1. No evidence of acute disease. CT abdomen and pelvis IMPRESSION: 1. No acute abdominal or pelvic findings. CBC unremarkable, metabolic panel remarkable for BUN 24, creatinine 1.32, lactate normal, BNP and serial troponins negative, UA positive for blood and few bacteria, influenza and COVID negative Patient treated with the following in the ED: 1 L 0.9 normal saline IV bolus, albuterol 5 mg/Atrovent 0.5 mg nebulized x2, Solu-Medrol 125 mg IV, fentanyl 12.5 mcg IV, Zofran 4 mg IV x2, Rocephin 1 g IV, Zithromax 500 mg IV On re-evaluation after 1st nebulizer treatment and doses Zofran, patient is still audibly wheezing, and still has nausea. Abdominal pain has improved. Plan is to admit the patient for IV hydration, IV antibiotics, pain and emesis control, and respiratory support as needed. Time of 1ST Reevaluation: 17:00 Reevaluation 1ST: Improved Patient Education/Counseling: Diagnosis, Treatment Family Education/Counseling: No Family Present Additional Information -Reviewed patient's previous visit(s): - The following tests were ordered, and results were reviewed by me: tropx 3, ekg x3, cbc, cmp, ua, ct abd pelvis non con, blood culture, lactic acid, chest x-ray, bnp, Flu A and B, COVID, - I reviewed and agreed with the following test results read by other provider: radiologist - I discussed treatments and results with medical personnel and: patient Comprehensive systems review obtained and negative except for what is stated in the HPI. Departure 1 Departure Time of Disposition: 18:19 Impression: Primary Impression: COPD with exacerbation Additional Impressions: Pneumonitis Abdominal pain Qualified Codes: R10.31 - Right lower quadrant pain Vomiting and diarrhea Acute kidney injury Disposition: ADMITTED INPATIENT Admit to: Tele Condition: Guarded e-Prescriptions No Active Prescriptions or Reported Meds Critical Care Note Critical Care Time?: No Stability Stability form required: No Heart Score Heart Score: Heart Score Response (Comments) Value History N/A 0 EKG N/A 0 Age N/A 0 Risk Factors N/A 0 Troponin N/A 0 Total 0 I personally scribed for TRELL HOOVER MD (MAHSAJUAN M) on 05/05/24 at 19:52. Electronically submitted by Jaqui Elias ([email or web address]). I personally scribed for TRELL HOOVER MD (MAHSAJUAN M) on 05/05/24 at 19:58. Electronically submitted by Jaqui Elias ([email or web address] TRELL HOOVER MD May 05, 2024 18:20
[2024-05-05] MEDS: SODIUM CHLORIDE 0.9% 1,000 ML IV ONE (18:37)
[2024-05-05 19:36] VITALS: PULSE 88; RESP 18; O2SAT 96
[2024-05-05 19:56] LABS: COVID19 ANTIGEN SOFIA FIA NEGATIVE (NEGATIVE)
[2024-05-05 20:04] LABS: Rapid Influenza A Negative (Negative); Rapid Influenza B Negative (Negative)
[2024-05-05 20:20] VITALS: BP 185/87; PULSE 86; RESP 18; TEMP 98.2; O2SAT 97
[2024-05-05] MEDS: cefTRIAXone 1GM/50ML D5W 50 ML IV ONE (20:43)
[2024-05-05] MEDS: AZITHROMYCIN 500MG/ 250ML 250 ML IV ONE (21:15)
[2024-05-05] MEDS: EPOETIN ALFA-EPBX 10,000 UNIT/1ML VIAL ONE (21:15)
[2024-05-05] MEDS: OXYCODONE W/ ACETAMINOPHEN 5/325MG TABLET PO PRN (21:30)
--- NOTE | 2024-05-05 22:27 | DVHHP2 ---
History of Present Illness Reason for Visit: Shortness for breath History of Present Illness 64-year-old female presents for evaluation of shortness for breath. Patient reports a two day history of worsening shortness for breath despite using her med nebs at home. She reports having a nonproductive cough. No fever or chills. Denies chest pain. No other acute complaints reported. Past Medical History COPD, asthma, dyslipidemia Past Surgical History Cholecystectomy, hysterectomy, tonsillectomy, appendectomy Family History Noncontributory Smoke: <1 pack per day ALCOHOL: none Drugs: Marijuana Lives: with Family Review of Systems Review of Systems Review of systems are currently negative otherwise addressed in HPI. Allergies: Coded Allergies: Ibuprofen (Verified Allergy, Unknown, 05/23/16) Ketorolac Tromethamine (Verified Allergy, Unknown, 05/05/24) Methocarbamol (Verified Allergy, Unknown, 05/05/24) Morphine (Verified Allergy, Unknown, 05/23/16) Naproxen (Verified Allergy, Unknown, 07/21/16) Tramadol (Verified Allergy, Unknown, 05/05/24) Medications Current Medications Medications Dose Ordered Sig/Tl Route Start Time Stop Time Status Last Admin Dose Admin Albuterol 2.5 mg Q6HPRN PRN NEB 05/05/24 20:15 Pantoprazole Sodium 40 mg DAILY@0600 PO 05/06/24 06:00 Gabapentin 400 mg BID PO 05/05/24 22:00 Oxycodone/ Acetaminophen 1 tab Q6HP PRN PO 05/05/24 20:15 05/05/24 21:30 1 TAB Ipratropium [place] 0.5 mg Q6HPRN PRN NEB 05/05/24 20:15 Azithromycin 250 ml @ 125 mls/hr DAILY IV 05/06/24 10:00 UNV Ondansetron HCl 4 mg Q4HP PRN IV 05/05/24 20:15 Acetaminophen 650 mg Q6HP PRN PO 05/05/24 20:15 Exam Vital Signs Vital Signs Date Time Temp Pulse Resp B/P (MAP) Pulse Ox O2 Delivery O2 Flow Rate FiO2 05/05/24 21:30 88 18 127/75 (92) 97 05/05/24 20:20 98.2 2.0 28 98.2 05/05/24 19:36 Nasal Cannula* Exam Gen: 64-year-old female in mild distress Skin: Warm, dry, normal color and texture, no rash. HEENT: Normocephalic atraumatic, mucous membranes moist and pink. Neck: Cervical and supraclavicular nodes normal without enlargement, trachea is midline, thyroid gland is normal without masses. Pulmonary: Diminished breath sounds bilaterally Cardiac: Regular rate and rhythm. No murmur Abdomen: Soft, nontender, nondistended, bowel sounds present all 4 quadrants, no guarding, no rigidity, no organomegaly. Extremities: No cyanosis, clubbing, no edema Neuro: Cranial nerves II through XII grossly intact, normal affect and speech, no focal motor deficits. Labs/Xrays ORDERING PHYSICIAN: TRELL HOOVER MD PROCEDURE(s): CXRP - CHEST PORTABLE REASON: sob ORDER NUMBER(s): [id number], ACCESSION NUMBER(s): [id number] INDICATION: sob TECHNIQUE: Frontal view of the chest. COMPARISON: None FINDINGS: . The heart and mediastinal contours are grossly unremarkable. There is no evidence of pleural disease. The lungs are clear. The bony structures of the chest are intact without fracture. IMPRESSION: 1. No evidence of acute disease. RING PHYSICIAN: TRELL HOOVER MD PROCEDURE(s): ABPL - CT AB PEL WO CON-NO ORAL OR IV REASON: rlq pain ORDER NUMBER(s): [id number], ACCESSION NUMBER(s): [id number] Exam: CT CT AB PEL WO CON-NO ORAL OR IV History: rlq pain Comparison Study: None available at time of dictation. Technique: Multidetector spiral CT of the abdomen and pelvis was performed from lung bases to pubic symphysis. Imaging was performed without intravenous contrast. Coronal and sagittal multiplanar reformats were obtained from the axial data set by the technologist. Radiation Dose : 1. Abdomen/Pelvis: CTDIvol 9.46 mGy, DLP 497.02 mGy*cm. Findings: Evaluation of vasculature and solid organs is limited due to lack of intravenous contrast use. Lung Bases: Bibasilar subsegmental atelectasis. Visualized portions of the heart and pericardium are unremarkable. Liver: The liver is normal in size. No focal lesions. Gallbladder and Biliary Tree: The gallbladder is surgically absent. No intrahepatic or extrahepatic biliary ductal dilatation. Spleen: Unremarkable Pancreas: The pancreas is grossly unremarkable. Adrenal Glands: Unremarkable Kidneys: Kidneys are unremarkable without calculi or hydronephrosis. GI tract: The stomach is grossly normal in appearance. No evidence of small bowel wall thickening or abnormal dilatation to suggest bowel obstruction. The colon is unremarkable. The appendix is not visualized, however no inflammatory changes in the right lower quadrant to suggest acute appendicitis. Peritoneum/mesentery/retroperitoneum. No evidence of free intraperitoneal air. No ascites. No evidence of suspicious lymphadenopathy. Abdominal Wall: Unremarkable. Vasculature: The visualized abdominal aorta is normal in size and caliber. Evaluation of abdominal and pelvic vessels is limited due to lack of intravenous contrast. Urinary Bladder: Grossly unremarkable for degree of distention. Pelvic Organs: Unremarkable Musculoskeletal: No aggressive focal bony lesions, acute fractures or dislocation. Posterior instrumented fusion at L4-L5. IMPRESSION: 1. No acute abdominal or pelvic findings. Labs Test 05/05/24 20:24 05/05/24 19:00 05/05/24 17:00 05/05/24 16:44 Range/Units D-Dimer, Quantitative < 0.19 0.0-0.49 mg/L FEU Influenza Type A Antigen Negative Negative Influenza Type B Antigen Negative Negative SARS-CoV-2 Antigen (Rapid) Negative NEGATIVE Urine Color Light-yellow Yellow Urine Clarity Clear Clear Urine pH 5.5 5.0-9.0 Urine Specific [place] 1.027 1.001-1.035 Urine Protein Trace H Negative Urine Ketones Negative Negative Urine Blood 1+ H Negative /uL Urine Nitrite Negative Negative Urine Bilirubin Negative Negative Urine Urobilinogen Normal Negative mg/dL Urine Leukocyte Esterase Negative Negative /uL Urine RBC 2 0 - 4 /hpf Urine Microscopic WBC 2 0-5 /HPF Urine Squamous Epithelial Cells Few <5 /hpf Urine Bacteria Few H None Seen /hpf Urine Mucus Few None Seen Urine Glucose Normal Normal mg/dL Troponin I High Sensitivity 5 </=34 ng/L Test 05/05/24 15:26 Range/Units White Blood Count 9.2 4.4-10.8 10^3/uL Red Blood Count 4.19 4.0-5.20 10^6/uL Hemoglobin 13.2 12.2-16.2 g/dL Hematocrit 38.5 36.0-46.0 % Mean Corpuscular Volume 91.8 80.0-100.0 fL Mean Corpuscular Hemoglobin 31.5 28.0-32.0 pg Mean Corpuscular Hemoglobin Concent 34.3 32.0-36.0 g/dL Red Cell Distribution Width 13.1 11.8-14.3 % Platelet Count 232 140-450 10^3/uL Mean Platelet Volume 9.4 6.9-10.8 fL Neutrophils (%) (Auto) 47.4 37.0-80.0 % Lymphocytes (%) (Auto) 40.5 10.0-50.0 % Monocytes (%) (Auto) 10.2 0.0-12.0 % Eosinophils (%) (Auto) 1.4 0.0-7.0 % Basophils (%) (Auto) 0.5 0.0-2.0 % Neutrophils # (Auto) 4.4 1.6-8.6 10 ^3/uL Lymphocytes # (Auto) 3.7 0.4-5.4 10 ^3/uL Monocytes # (Auto) 0.9 0-1.3 10 ^3/uL Eosinophils # (Auto) 0.1 0-0.8 10 ^3/uL Basophils # (Auto) 0 0-0.2 10 ^3/uL Nucleated Red Blood Cells 0.2 % Sodium Level 143 136-145 mmol/L Potassium Level 4.0 3.5-5.1 mmol/L Chloride Level 108 H 98-107 mmol/L Carbon Dioxide Level 25 20-31 mmol/L Anion Gap 10 5-15 Blood Urea Nitrogen 24 H 9-23 mg/dL Creatinine 1.32 H 0.550-1.02 mg/dL Glomerular Filtration Rate Calc 45 >90 mL/min BUN/Creatinine Ratio 18.2 10.0-20.0 Serum Glucose 89 74-106 mg/dL Lactic Acid Level 1.2 0.4-2.0 mmol/L Calcium Level 10.3 8.7-10.4 mg/dL Total Bilirubin 0.5 0.2-1.0 mg/dL Aspartate Amino Transferase (AST) 36 13-40 U/L Alanine Aminotransferase (ALT) 25 7-40 U/L Alkaline Phosphatase 91 46-116 U/L B-Type Natriuretic Peptide 175.85 0-100 pg/mL Total Protein 6.6 5.7-8.2 g/dL Albumin 4.6 3.2-4.8 g/dL Assessment/Plan Assessment/Plan Assessment Acute on chronic respiratory failure COPD exacerbation Hypertension Active smoker Narcotic dependence Acute kidney injury Acute pneumonitis Plan Admit the patient to Med surge to the hospitalist Med nebs Azithromycin Resume home medications Continue treatment per orders. Plan discussed with: Patient My Orders Orders - SURJIT FAULKNER Procedure Category Date Status Time Albuterol Medneb PHA 05/05/24 In Process (Ventolin Medneb) 20:15 Pantoprazole Tablet PHA 05/06/24 In Process (Protonix Tablet) 06:00 Gabapentin Capsule PHA 05/05/24 In Process (Neurontin Capsule) 22:00 Oxycodone W/ Acet PHA 05/05/24 In Process 5/325mg Tab (Percocet 20:15 Ipratropium Medneb PHA 05/05/24 In Process (Atrovent Medneb) 20:15 Azithromycin 500mg/ PHA 05/06/24 Pending 250ml (Zithromax 50 10:00 Basic Metabolic Panel LAB 05/06/24 Verified 04:00 Admit ADMIT 05/05/24 Transmitted 20:01 Ondansetron Hcl PHA 05/05/24 In Process (Zofran) 20:15 Complete Blood Count LAB 05/06/24 Verified 04:00 Cardiac DIET 05/06/24 Transmitted Diet-2gna,Lofat,Lochol Breakfast Condition: Stable KAJAL 05/05/24 In Process 20:01 Acetaminophen Tablet PHA 05/05/24 In Process (Tylenol Tablet) 20:15 Bedrest With Bathroom KAJAL 05/05/24 In Process Privileg 20:01 Date of Service: May 05, 2024 Billing Provider: SURJIT FAULKNER Common Visit Codes: [id number] INP/OBS CARE (HIGH) SURJIT FAULKNER May 05, 2024 22:27
[2024-05-05] MEDS: GABAPENTIN 400 MG CAP PO SCH (22:30)
[2024-05-05 23:28] VITALS: BP 113/76; PULSE 88; RESP 17; TEMP 97.8; O2SAT 98
[2024-05-06] VITALS (8 sets, daily range): BP systolic 102–128; BP diastolic 56–70; PULSE 80–92; RESP 18–19; TEMP 97.4–98.6; O2SAT 93–97
[2024-05-06] MEDS: ACETAMINOPHEN 325 MG TAB PO PRN (00:18)
[2024-05-06] MEDS ORDERED: CYCL-611 (04:45)
[2024-05-06] MEDS ORDERED: FLUO40CA (04:45)
[2024-05-06] MEDS ORDERED: HYDR-3682 (04:45)
[2024-05-06] MEDS ORDERED: PANT40T (04:45)
[2024-05-06] MEDS ORDERED: GABA-1251 (04:45)
[2024-05-06] MEDS ORDERED: HYDR-4902 PO (04:45)
[2024-05-06] MEDS ORDERED: CHOL1CAP21 (04:45)
[2024-05-06] MEDS ORDERED: ZOFR4T PO (04:46)
[2024-05-06] MEDS ORDERED: ALBUAER3 IN (04:47)
[2024-05-06] MEDS: PANTOPRAZOLE 40 MG TAB PO SCH (05:06)
[2024-05-06 06:39] LABS: Basophils # (auto) 0 10 ^3/uL (0-0.2); Basophils % (auto) 0.2 % (0.0-2.0); Eosinophils # (auto) 0 10 ^3/uL (0-0.8); Eosinophils % (auto) 0.5 % (0.0-7.0); Hematocrit 40.2 % (36.0-46.0); Hemoglobin 13.2 g/dL (12.2-16.2); Lymphocytes # (auto) 1.3 10 ^3/uL (0.4-5.4); Lymphocytes % (auto) 17.7 % (10.0-50.0); Mean Corpuscular Hemoglobin 31.5 pg (28.0-32.0); Mean Corpuscular Hgb Conc. 32.9 g/dL (32.0-36.0); Mean Corpuscular Volume 95.8 fL (80.0-100.0); Monocytes # (auto) 0.2 10 ^3/uL (0-1.3); Monocytes % (auto) 2.7 % (0.0-12.0); Neutrophils # (auto) 5.6 10 ^3/uL (1.6-8.6); Neutrophils % (auto) 78.9 % (37.0-80.0); Nucleated Red Blood Cells % 0.2 %; Platelet Count (auto) 212 10^3/uL (140-450); Red Blood Cells 4.19 10^6/uL (4.0-5.20); Red Cell Distribution Width 13.4 % (11.8-14.3); White Blood Cell 7.1 10^3/uL (4.4-10.8)
[2024-05-06 06:48] LABS: Anion Gap 11 (5-15); Carbon Dioxide 21 mmol/L (20-31); Potassium 4.7 mmol/L (3.5-5.1); Sodium 139 mmol/L (136-145)
[2024-05-06 06:49] LABS: Calcium 9.8 mg/dL (8.7-10.4)
[2024-05-06 06:53] LABS: Chloride 107 mmol/L (98-107)
[2024-05-06 06:54] LABS: BUN/Creatinine Ratio 11.2 (10.0-20.0); Blood Urea Nitrogen 13 mg/dL (9-23)
[2024-05-06 07:02] LABS: Glucose 178 mg/dL (74-106)
--- NOTE | 2024-05-06 08:19 | DVHPNRES ---
Progress Note Date Seen: May 06, 2024 Resident Creating Document: BONNIE PERRY RESIDENT Has the PT tested + for MRSA If YES, has PT been informed?: Yes Medical Necessity Reason Pt with a Central, PICC or Fol: No Subjective Review of Systems 64-year-old female with past medical history of COPD,Nicotine dependency, drug abuse (marijuana ) asthma, dyslipidemia who presented to the hospital with a chief complaint of shortness of breaths. Patient reported shortness of breaths started 2 before admission, she just came to [place] from [place] where she lives. She describes the pain is located in the middle of the chest, 5/10 intensity nonradiating and progressively getting worse despite using albuterol at home. Patient was examined at bedside, she reports having 1 episode of coughing with blood this morning, she also reports having losing weight for the past couple of weeks ( 10 lb) Patient was started on breathing treatment and this as azithromycin. She has a history of lumbar spine surgery after which she had chronic neuropathic back pain for which she uses gabapentin. Patient was started on oxycodone p.r.n. q.6 for moderate pain. Past surgical history Cholecystectomy hysterectomy tonsillectomy appendectomy ROS: Constitutional: No: Fever, Chills, Sweats, Weakness, Malaise, Other Eyes: No: Pain, Vision change, Conjunctivae inflammation, Eyelid inflammation, Other, Redness ENT: No: Ear pain, Ear discharge, Nose pain, Nose discharge, Nose congestion, Mouth pain, Mouth swelling, no dentition, Throat pain, Throat swelling, Other Respiratory: Productive Cough present with a streaks of blood, Shortness of breath, improving No Wheezing, Hemoptysis, Pleuritic Pain, , Wheezing, Other Cardiovascular: No: Chest Pain, Palpitations, Orthopnea, Paroxysmal Noc. Dyspnea, Edema, Lt Headedness, Other Gastrointestinal: No: Nausea, Vomiting, Abdominal Pain, Diarrhea, Constipation, Melena, Hematochezia, Other Musculoskeletal: No: other, neck pain, shoulder pain, arm pain, back pain, hand pain, leg pain, foot pain Neurological:; No: Weakness, Numbness, Incoordination, Change in speech, Confusion, Seizures Patient reports: No new complaints Objective vital signs Vital Sign Date Time Temp Pulse Resp B/P (MAP) Pulse Ox O2 Delivery O2 Flow Rate FiO2 05/06/24 06:49 97 Nasal Cannula* 2 28 05/06/24 05:00 97.4 80 18 121/59 (79) 97.4 Total Intake and Output 05/05/24 05/05/24 05/06/24 15:00 23:00 07:00 Intake Total 50 ml 50 ml Balance 50 ml 50 ml medications Current Medications Medications Dose Ordered Sig/Tl Route Start Time Stop Time Status Last Admin Dose Admin Albuterol 2.5 mg Q6HPRN PRN NEB 05/05/24 20:15 Pantoprazole Sodium 40 mg DAILY@0600 PO 05/06/24 06:00 05/06/24 05:06 40 MG Gabapentin 400 mg BID PO 05/05/24 22:00 05/05/24 22:30 400 MG Oxycodone/ Acetaminophen 1 tab Q6HP PRN PO 05/05/24 20:15 05/06/24 03:35 1 TAB Ipratropium [place] 0.5 mg Q6HPRN PRN NEB 05/05/24 20:15 Azithromycin 250 ml @ 125 mls/hr DAILY IV 05/06/24 10:00 Ondansetron HCl 4 mg Q4HP PRN IV 05/05/24 20:15 Acetaminophen 650 mg Q6HP PRN PO 05/05/24 20:15 05/06/24 00:18 650 MG Examination Examination General Appearance: Alert, Oriented X3, Cooperative, No acute distress HEENT: EOMI Respiratory: Bibasilar crackles bilaterally, Normal air movement Cardiovascular: Regular rate, Normal S1, Normal S2 Abdominal: Normal bowel sounds Extremities: No cyanosis, No edema, Normal pulses, No tenderness/swelling Skin: No rashes, No breakdown Neuro: Normal gait, Normal speech, Strength at 5/5 X4 ext, Normal tone, Sensation intact, Cranial nerves 3-12 NL, Reflexes 2+ Psych/Mental Status: Mental status NL, Mood NL laboratory and microbiology Laboratory Tests 05/06/24 06:08 Test 05/06/24 06:08 Range/Units Serum Glucose 178 H 74-106 mg/dL Labs and/or images reviewed: Labs reviewed by me Problem List/Assessment/Plan Problem List/Assessment/Plan Acute respiratory distress due to COPD exacerbation Rule out community-acquired pneumonia Hemoptysis Pulmonary embolism, ruled out, well score unlikely, D-dimer negative. Rule out malignancy Admit to med surge Chest CT without contrast Azithromycin Ceftriaxone IV Ipratropium bromide 0.5 Albuterol 2.5 Blood culture pending Dysphonia likely structural Cervical lymphadenopathies Neck CT with contrast Monospot test Acute kidney injury on chronic kidney disease stage 2b Creatinine improving Normal saline 0.9% aortic calcifications Monitor History of kidney stones Monitor Chronic pain syndrome (back pain ) Resumed gabapentin. Oxycodone p.r.n. Overweight BMI 29.9 Lifestyle modification counseling and dietary habits counseling Case discussed with Dr. Hudson Goals of care discussed with the patient for 38 minutes. Code status: Full code Plan discussed with: Patient My Orders My Orders Orders - BONNIE PERRY RESIDENT Procedure Category Date Status Time Drug Screen LAB 05/06/24 Logged 08:02 Microalbumin Random LAB 05/06/24 Logged Urine 08:02 Hemoglobin A1c LAB 05/06/24 Logged 08:02 Thyroid Stimulating LAB 05/06/24 Logged Hormone 08:02 Prothrombin Time W/ LAB 05/06/24 Logged INR 08:02 Echo 2d Mode Cardiac US 05/06/24 Logged DOP 08:02 Date of Service: May 06, 2024 Billing Provider: SARI HUDSON MD Common Visit Codes: [id number] INP/OBS CARE(HIGH) BONNIE PERRY RESIDENT May 06, 2024 08:19 SARI HUDSON MD May 13, 2024 14:34
[2024-05-06] MEDS: AZITHROMYCIN 500MG/ 250ML 250 ML IV SCH (10:34)
[2024-05-06 11:28] LABS: INR 0.97 (0.9-1.15); Prothrombin Time 10.3 sec (9.3-11.8)
--- NOTE | 2024-05-06 15:21 | DVHSR ---
APPROVED REPORT EXAM: Two-dimensional and M-mode echocardiogram with Doppler and color Doppler. Blood Pressure: 118/70 mmHg INDICATION SOB RISK FACTORS Height: 5'5", Weight: 179 DIMENSIONS LVDd4.5 (3.8-5.7cm)LA (2D)3.4 (1.9-4.0cm)Aortic Root3.5 (2.0-3.7cm) LVDs3.1 (2.5-4.0cm)LA (MM) (1.9-4.0cm)Aortic Cusp Exc1.6 (1.5-2.0cm) EF (%) 60.0 (55-70%)Rt. Atrium3.3 (1.9-4.0cm)Asc. Aorta cm IVSd1.0 (0.7-1.1cm)RV (D) (1.8-2.4cm) PWd1.0 (0.7-1.1cm) Mitral Valve MitralMitral Stenosis E wave0.88m/sMV Mean GR.mmHg A wave1.10m/sMV Peak GR.mmHg E/A ratio0.82D MVAcm2 DECEL [id number] 1/2 [place] Aortic Valve Aortic ValveAortic Stenosis V11.14m/Osmar Mean GR.5mmHg V21.55m/Osmar Peak GR.10mmHg LVOT Diameter1.8 (1.8-2.4cm)Doppler AVA1.87cm2 AI P 1/2 Uecv557.72ms Pulmonic Valve V20.89m/s Tricuspid Valve TR Velocity2.59m/s [id number] Other Information Technically limited study due to body habitus. Conclusion lvef 60% by visual estimate normal rv function, RV enlarged left atrium enlarged mild mitral regurg no severe valve abnormalities noted
[2024-05-06] MEDS: SODIUM CHLORIDE 0.9% 1,000 ML IV ONE (16:40)
[2024-05-06] MEDS: cefTRIAXone 1GM/50ML D5W 50 ML IV ONE (16:40)
[2024-05-07] VITALS (10 sets, daily range): BP systolic 112–139; BP diastolic 55–74; PULSE 69–85; RESP 16–19; TEMP 97.3–98.2; O2SAT 91–99
[2024-05-07 06:57] LABS: Anion Gap 7 (5-15); Carbon Dioxide 24 mmol/L (20-31); Potassium 4.2 mmol/L (3.5-5.1); Sodium 141 mmol/L (136-145)
[2024-05-07 06:58] LABS: Calcium 9.6 mg/dL (8.7-10.4)
[2024-05-07 06:59] LABS: Chloride 110 mmol/L (98-107)
[2024-05-07 07:03] LABS: Blood Urea Nitrogen 13 mg/dL (9-23); Glucose 90 mg/dL (74-106)
[2024-05-07 07:18] LABS: Basophils # (auto) 0 10 ^3/uL (0-0.2); Basophils % (auto) 0.2 % (0.0-2.0); Eosinophils # (auto) 0 10 ^3/uL (0-0.8); Hematocrit 40.3 % (36.0-46.0); Hemoglobin 13.2 g/dL (12.2-16.2); Lymphocytes # (auto) 3.7 10 ^3/uL (0.4-5.4); Lymphocytes % (auto) 36.5 % (10.0-50.0); Mean Corpuscular Hemoglobin 31.7 pg (28.0-32.0); Mean Corpuscular Hgb Conc. 32.6 g/dL (32.0-36.0); Mean Corpuscular Volume 97.1 fL (80.0-100.0); Monocytes % (auto) 9.9 % (0.0-12.0); Neutrophils # (auto) 5.4 10 ^3/uL (1.6-8.6); Neutrophils % (auto) 53.4 % (37.0-80.0); Platelet Count (auto) 198 10^3/uL (140-450); Red Blood Cells 4.15 10^6/uL (4.0-5.20); Red Cell Distribution Width 13.6 % (11.8-14.3); White Blood Cell 10.2 10^3/uL (4.4-10.8)
--- NOTE | 2024-05-07 08:30 | ECG ---
[facility] Test Date: 2024-05-05 Test Time: 14:36:54 Pat Name: AYDIN MARTINEZ Department: ER Room: 0240 A Gender: F Online [employer]st: ER : 1960 Requested By: RIK PARRA Order Number: [id number] Reading MD: Justus Mcneil Measurements Intervals [place] Rate: 104 P: 76 MD: 115 QRS: 47 QRSD: 74 T: 55 QT: 360 QTc: 474 Interpretive Statements Sinus tachycardia Low voltage, precordial leads Electronically Signed On 05-10-2024 22:57:06 PDT by Justus Mcneil Please click the below link to view image of tracing.
[2024-05-07] MEDS: cefTRIAXone 1GM/50ML D5W 50 ML IV SCH (09:38)
--- NOTE | 2024-05-07 13:06 | DVH ---
Accession Number: [id number] Clinical History: RO STRUCTURAL ABNORMALITIES Comparison: None Technique: After the intravenous administration of intravenous contrast, multi-slice CT scan of the n harvinder was performed without complication. Radiation Dose Information: CT Dose: CTDI volume is 27.58 mGy. Dose-length product is 1673.3 mGy*cm Findings: The glottis is closed limiting evaluation of the larynx. Otherwise, the nasopharynx, oropharynx, hyp opharynx, esophagus, and larynx demonstrate normal patency and contour without evidence of a soft tis tony mass at this time. Bilateral laryngeal ventricles are noted. Bilaterally, the parotid, submandibular, and sublingual glands are normal in their size, shape, and a ttenuation without evidence of calcification. The visualized oral tongue, tongue base, and floor of mouth regions demonstrate no obvious mass or ab normal enhancement. Evaluation of the lateral spaces of the neck demonstrates no obvious masses at this time or significa nt lymphadenopathy. Multiple thyroid nodules, largest on the left measuring up to 1 cm. Moderate emphysematous changes of the lung apices. Moderate to severe degenerative changes of the cer vical spine. Impression: Glottis is closed limiting evaluation of the larynx. Multiple thyroid nodules. Otherwise, unremarka ble contrast-enhanced CT of the neck.
--- NOTE | 2024-05-07 13:13 | DVH ---
Procedure: CT CHEST WITHOUT CONTRAST Study Date and Requested Time: 05/07 10:55 AM History: RO MALIGNANCY Comparison: None Dose: CTDI: 27.58 mGy DLP: 1673.3 mGycm Technique: Multiplanar images obtained through the chest without contrast Findings: Limited evaluation of the thyroid nodules given noncontrast imaging. Heart size is within normal limits. No evidence of aortic aneurysm. Mild atherosclerotic calcificati on of the aorta. Pulmonary trunk is normal in size. No significant lymphadenopathy. Ipvt-mp-[id number] upper lobe predominant sroz-ej-fmqzyzve biapical predominant emphysematous changes. No pneumothorax. Right middle lobe, lingula and bilateral lower lobe atelectasis. Trace right-sided p leural effusion. Status post cholecystectomy. Otherwise partial view of the upper abdomen is unremarkable. The soft tissues are unremarkable. Destructive osseous lesions are noted. Impression: [id number] biapical predominant emphysematous changes. Trace right-sided pleural effusion with bilateral lower lobe, lingula and right middle lobe atelectas is.
[2024-05-07 15:02] LABS: Free T3 2.57 pg/mL (2.3-4.2); Free T4 (Free Thyroxine) 1.13 ng/dL (0.89-1.76)
--- NOTE | 2024-05-07 15:21 | DVH ---
ULTRASOUND SOFT TISSUE HEAD AND NECK CLINICAL INDICATION: Thyroid nodules TECHNIQUE: Multiple real time sonographic images of the thyroid were obtained. Comparison: None FINDINGS: The right thyroid gland measures 4.4 x 1.8 x 1.2 cm. The left thyroid gland measures approximately 3.9 x 2.0 x 1.7 cm. The isthmus measures 0.6 cm. Hypoechoic nodule in the right upper thyroid measures 0.3 cm, TR 3. Benign colloid cysts are present in the right upper pole measures 0.7 cm and left upper pole measurin g 1.2 cm, TR 2. IMPRESSION: Hypoechoic nodule in the right upper thyroid measures 0.3 cm, TR 3. Benign colloid cysts are present in the right upper pole measures 0.7 cm and left upper pole measurin g 1.2 cm, TR 2. [employer] TI-RADS Categories and Recommendations (2017): TR1: 0 points, Benign, No FNA TR2: 2 points, Not suspicious, No FNA TR3: 3 points, Mildly suspicious, FNA if > or = 2.5 cm, Follow if > or = 1.5 cm TR4: 4-6 points, Moderately Suspicious, FNA if > or = 1.5 cm, Follow if > or = 1.0 cm TR5: 7+ points, Highly Suspicious, FNA if > or = 1.0 cm, Follow if > or = 0.5 cm Follow-up ultrasound guidelines: TR5: yearly for 5 years, if no growth or change in TI-RADS level TR4: at 1, 2, 3 and 5 years, if no growth or change in TI-RADS level TR3: at 1, 3 and 5 years, if no growth or change in TI-RADS level If increased but below threshold for FNA, repeat in one year. Source: ACR Thyroid Imaging, Reporting and Data System (TI-RADS): White Paper of the ACR TI-RADS Committee. Daryn et al., J Am Perry Radiol 2017;14:587-595.
[2024-05-07] MEDS: MORPHINE SULFATE INJ 2 MG/ml SYRG IV ONE (15:26)
[2024-05-07] MEDS: AZITHROMYCIN 250 MG TAB PO ONE (16:30)
--- NOTE | 2024-05-07 16:48 | DVHPNRES ---
Progress Note Date Seen: May 07, 2024 Resident Creating Document: BONNIE PERRY RESIDENT Has the PT tested + for MRSA If YES, has PT been informed?: Yes Medical Necessity Reason Pt with a Central, PICC or Fol: No Subjective Review of Systems 64-year-old female with past medical history of COPD,Nicotine dependency, drug abuse (marijuana ) asthma, dyslipidemia who presented to the hospital with a chief complaint of shortness of breaths. Patient reported shortness of breaths started 2 before admission, she just came to [place] from [place] where she lives. She described the pain as located in the middle of the chest, 5/10 intensity nonradiating and progressively getting worse despite using albuterol at home. she also reports having losing weight for the past couple of weeks ( 10 lb) Patient reports having 1 episode of coughing with blood this morning, CT scan of the chest was unremarkable other than some emphysematous changes. She has a history of lumbar spine surgery after which she had chronic neuropathic back pain for which she uses gabapentin. CT neck shows some nodules in the thyroid for which ultrasound was ordered , it showed thyroid 2 and 3 nodules, no indicative for fine-needle aspiration at this time. But follow-up with primary care doctor as an outpatient. ROS: Constitutional: No: Fever, Chills, Sweats, Weakness, Malaise, Other Eyes: No: Pain, Vision change, Conjunctivae inflammation, Eyelid inflammation, Other, Redness ENT: No: Ear pain, Ear discharge, Nose pain, Nose discharge, Nose congestion, Mouth pain, Mouth swelling, Throat pain, Throat swelling, Other Respiratory: Cough present, Shortness of breath improving currently on 2 L nasal cannula. No Wheezing, Hemoptysis, Pleuritic Pain, Sputum, Wheezing, Other Cardiovascular: No: Chest Pain, Palpitations, Orthopnea, Paroxysmal Noc. Dyspnea, Edema, Lt Headedness, Other Gastrointestinal: No: Nausea, Vomiting, Abdominal Pain, Diarrhea, Constipation, Melena, Hematochezia, Other Neurological:; No: Weakness, Numbness, Incoordination, Change in speech, Confusion, Seizures Patient reports: No new complaints Changes from previous H/P or p: No Changes Objective vital signs Vital Sign Date Time Temp Pulse Resp B/P (MAP) Pulse Ox O2 Delivery O2 Flow Rate FiO2 05/07/24 15:26 78 18 142/70 05/07/24 13:00 98.2 94 98.2 05/07/24 10:00 Nasal Cannula* 2 28 Total Intake and Output 05/06/24 05/06/24 05/07/24 15:00 23:00 07:00 Intake Total 720 ml 1015 ml 400 ml Balance 720 ml 1015 ml 400 ml medications Current Medications Medications Dose Ordered Sig/Tl Route Start Time Stop Time Status Last Admin Dose Admin Albuterol 2.5 mg Q6HPRN PRN NEB 05/05/24 20:15 Pantoprazole Sodium 40 mg DAILY@0600 PO 05/06/24 06:00 05/07/24 05:56 40 MG Gabapentin 400 mg BID PO 05/05/24 22:00 05/07/24 09:38 400 MG Oxycodone/ Acetaminophen 1 tab Q6HP PRN PO 05/05/24 20:15 05/07/24 05:57 1 TAB Ipratropium [place] 0.5 mg Q6HPRN PRN NEB 05/05/24 20:15 Ondansetron HCl 4 mg Q4HP PRN IV 05/05/24 20:15 Acetaminophen 650 mg Q6HP PRN PO 05/05/24 20:15 05/06/24 00:18 650 MG Ceftriaxone Sodium 50 ml @ 100 mls/hr DAILY@09 IV 05/07/24 09:00 05/07/24 09:38 100 MLS/HR Morphine Sulfate 1 mg Q6HP PRN IV 05/07/24 13:15 Azithromycin 500 mg DAILY PO 05/08/24 10:00 UNV Examination Examination General Appearance: Alert, Oriented X3, Cooperative, moderate acute distress Respiratory: Clear to auscultation, Normal air movement Cardiovascular: Regular rate, Normal S1, Normal S2 Abdominal: Normal bowel sounds Extremities: No cyanosis, No edema, Normal pulses, No tenderness/swelling Skin: No rashes, No breakdown Neuro: Normal speech, Strength at 5/5 X4 ext, Normal tone, Sensation intact, Cranial nerves 3-12 NL, Reflexes 2+ Psych/Mental Status: Mental status NL, Mood NL laboratory and microbiology Laboratory Tests 05/07/24 06:09 Test 05/07/24 06:09 Range/Units Serum Glucose 90 74-106 mg/dL Microbiology Date/Time Source Procedure Growth Status 05/06/24 20:13 Nose MRSA Screen - Final Complete 05/05/24 15:26 Blood Blood Culture - Preliminary NO GROWTH AFTER 48 HOURS OF INCUBATION. Resulted Problem List/Assessment/Plan Problem List/Assessment/Plan #Acute respiratory distress due to COPD exacerbation #Rule out community-acquired pneumonia #Hemoptysis #Pulmonary embolism, ruled out, well score unlikely, D-dimer negative. -Admit to med surge -Azithromycin -Ceftriaxone IV -Ipratropium bromide 0.5 -Albuterol 2.5 #Dysphonia likely structural #Hypoechoic nodule in the right upper thyroid measures 0.3 cm, TR 3. #Benign colloid cysts are present in the right upper pole measures 0.7 cm and left upper pole measuring 1.2 cm, TR 2. #Cervical lymphadenopathies -Neck CT with contrast showed multiple thyroid nodules -Monospot test, pending -TSH slightly low -T3 and T4 normal -thyroid ultrasound #Acute kidney injury on chronic kidney disease stage 3b Creatinine improving Normal saline 0.9% #aortic calcifications Monitor #Hypertension Resume home meds #Mild mitral regurgitation -monitor #History of kidney stones Monitor #Chronic pain syndrome (back pain ) #Moderate to severe degenerative changes of the cervical spine, seen on CT -Resumed gabapentin. -Oxycodone p.r.n. #Nicotine dependency -Smoking cessation counseling. # type 1 obesity BMI> 30 - Lifestyle modification counseling and dietary habits counseling Case discussed with Dr. Hudson Goals of care discussed with the patient for 36 minutes. Code status: Full code Plan discussed with: Patient, Other (Sister) My Orders My Orders Orders - BONNIE PERRY RESIDENT Procedure Category Date Status Time Morphine Sulfate PHA 05/07/24 In Process Injection 13:15 Thyroid US 05/07/24 Resulted 14:16 Azithromycin Tablet PHA 05/07/24 Logged (Zithromax Tablet) 16:30 Azithromycin Tablet PHA 05/08/24 Logged (Zithromax Tablet) 10:00 Date of Service: May 07, 2024 Billing Provider: SARI HUDSON MD Common Visit Codes: [id number] INP/OBS CARE(HIGH) BONNIE PERRY RESIDENT May 07, 2024 16:48 SARI HUDSON MD May 13, 2024 14:57
[2024-05-07] MEDS: MORPHINE SULFATE INJ 2 MG/ml SYRG IV PRN (21:14)
[2024-05-08] VITALS (11 sets, daily range): BP systolic 121–142; BP diastolic 52–97; PULSE 71–96; RESP 18–20; TEMP 97.8–98.4; O2SAT 92–100
[2024-05-08] MEDS: ALBUTEROL SULF 2.5 MG/0.5ML(0.5%) NEB SOLN NEB PRN (00:53)
[2024-05-08] MEDS: IPRATROPIUM BROM 0.5 MG/2.5ML INH SOL NEB PRN (00:53)
[2024-05-08 06:07] LABS: EBV Ab VCA IgG Antibody >600.0 U/mL (0.0-17.9); EBV Ab VCA IgM Antibody <36.0 U/mL (0.0-35.9)
[2024-05-08 06:54] LABS: Chloride 107 mmol/L (98-107); Hematocrit 37.2 % (36.0-46.0); Hemoglobin 12.6 g/dL (12.2-16.2); Mean Corpuscular Hemoglobin 31.7 pg (28.0-32.0); Mean Corpuscular Hgb Conc. 33.8 g/dL (32.0-36.0); Mean Corpuscular Volume 93.8 fL (80.0-100.0); Platelet Count (auto) 190 10^3/uL (140-450); Potassium 3.5 mmol/L (3.5-5.1); Red Blood Cells 3.97 10^6/uL (4.0-5.20); Red Cell Distribution Width 13.1 % (11.8-14.3); Sodium 141 mmol/L (136-145); White Blood Cell 7.2 10^3/uL (4.4-10.8)
[2024-05-08 06:55] LABS: Anion Gap 7 (5-15); Carbon Dioxide 27 mmol/L (20-31)
[2024-05-08 06:56] LABS: Calcium 9.4 mg/dL (8.7-10.4)
[2024-05-08 07:00] LABS: Glucose 87 mg/dL (74-106)
[2024-05-08 07:01] LABS: BUN/Creatinine Ratio 12.8 (10.0-20.0); Blood Urea Nitrogen 14 mg/dL (9-23)
[2024-05-08 07:04] LABS: Band Neutrophils % (manual) 0; Basophils % (manual) 0 (0.0-2.0); Blast Cells 0; Metamyelocytes % 0; Myelocytes % 0; Promyelocytes % 0; Reactive Lymphocytes 0
[2024-05-08] MEDS: ONDANSETRON HCL 4 MG/2 ML VIAL IV PRN (08:08)
[2024-05-08] MEDS: AZITHROMYCIN 250 MG TAB PO SCH (09:10)
[2024-05-08 12:08] LABS: Eosinophils % (manual) 1 (0-7); Lymphocytes % (manual) 58 (10.0-50.0); Monocytes % (manual) 6 (0-12); Platelet Estimate Adequate
[2024-05-08] MEDS ORDERED: methylPREDNISolone SOD SUCC 40 MG/ML VL IV ONE (12:30)
[2024-05-08] MEDS ORDERED: AZIT-43 PO (15:06)
--- NOTE | 2024-05-08 15:37 | DVHDSRES ---
Discharge Summary Date of Admission Resident Creating Document: BONNIE PERRY RESIDENT May 05, 2024 at 20:01 Date of Discharge: May 08, 2024 Admitting Diagnosis Acute on chronic respiratory failure Labs/Diagnostic Data: Laboratory Results Test 05/08/24 05:49 05/07/24 06:09 05/06/24 19:36 05/06/24 10:52 White Blood Count 7.2 10^3/uL (4.4-10.8) Red Blood Count 3.97 10^6/uL (4.0-5.20) Hemoglobin 12.6 g/dL (12.2-16.2) Hematocrit 37.2 % (36.0-46.0) Mean Corpuscular Volume 93.8 fL (80.0-100.0) Mean Corpuscular Hemoglobin 31.7 pg (28.0-32.0) Mean Corpuscular Hemoglobin Concent 33.8 g/dL (32.0-36.0) Red Cell Distribution Width 13.1 % (11.8-14.3) Platelet Count 190 10^3/uL (140-450) Mean Platelet Volume 9.1 fL (6.9-10.8) Neutrophils (%) (Auto) % (37.0-80.0) Lymphocytes (%) (Auto) % (10.0-50.0) Monocytes (%) (Auto) % (0.0-12.0) Basophils (%) (Auto) % (0.0-2.0) Neutrophils # (Auto) 10 ^3/uL (1.6-8.6) Lymphocytes # (Auto) 10 ^3/uL (0.4-5.4) Monocytes # (Auto) 10 ^3/uL (0-1.3) Differential Total Cells Counted 100.0 (100) Neutrophils % (Manual) 35 (37.0-80.0) Band Neutrophils % (Manual) 0 Lymphocytes % (Manual) 58 (10.0-50.0) Monocytes % (Manual) 6 (0-12) Eosinophils % (Manual) 1 (0-7) Basophils % (Manual) 0 (0.0-2.0) Metamyelocytes % (manual) 0 Myelocytes % (Manual) 0 Promyelocytes % (Manual) 0 Blast Cells % (Manual) 0 Reactive Lymphocytes 0 Platelet Estimate Adequate Sodium Level 141 mmol/L (136-145) Potassium Level 3.5 mmol/L (3.5-5.1) Chloride Level 107 mmol/L (98-107) Carbon Dioxide Level 27 mmol/L (20-31) Anion Gap 7 (5-15) Blood Urea Nitrogen 14 mg/dL (9-23) Creatinine 1.09 mg/dL (0.550-1.02) Glomerular Filtration Rate Calc 57 mL/min (>90) BUN/Creatinine Ratio 12.8 (10.0-20.0) Serum Glucose 87 mg/dL (74-106) Calcium Level 9.4 mg/dL (8.7-10.4) Eosinophils (%) (Auto) 0.0 % (0.0-7.0) Eosinophils # (Auto) 0 10 ^3/uL (0-0.8) Basophils # (Auto) 0 10 ^3/uL (0-0.2) Nucleated Red Blood Cells 0.0 % Free Thyroxine (T4) Calculated 1.13 ng/dL (0.89-1.76) Free Triiodothyronine (T3) pg/mL 2.57 pg/mL (2.3-4.2) [place] Virus Capsid Ag IgG Ab >600.0 U/mL (0.0-17.9) [place] Virus Capsid Ag IgM Ab <36.0 U/mL (0.0-35.9) [place] Early Antigen IgG Ab 144.0 U/mL (0.0-17.9) Kasia-[place] Virus Ab Interpret Comment (.) Prothrombin Time 10.3 sec (9.3-11.8) Prothrombin Time INR 0.97 (0.9-1.15) Test 05/06/24 06:08 05/05/24 20:24 05/05/24 19:00 05/05/24 17:00 Hemoglobin A1c 5.6 % A1C (<5.7) Thyroid Stimulating Hormone (TSH) 0.54 uIU/mL (0.55-4.78) D-Dimer, Quantitative < 0.19 mg/L FEU (0.0-0.49) Influenza Type A Antigen Negative (Negative) Influenza Type B Antigen Negative (Negative) SARS-CoV-2 Antigen (Rapid) Negative (NEGATIVE) Urine Color Light-yellow (Yellow) Urine Clarity Clear (Clear) Urine pH 5.5 (5.0-9.0) Urine Specific [place] 1.027 (1.001-1.035) Urine Protein Trace (Negative) Urine Ketones Negative (Negative) Urine Blood 1+ /uL (Negative) Urine Nitrite Negative (Negative) Urine Bilirubin Negative (Negative) Urine Urobilinogen Normal mg/dL (Negative) Urine Leukocyte Esterase Negative /uL (Negative) Urine RBC 2 /hpf (0 - 4) Urine Microscopic WBC 2 /HPF (0-5) Urine Squamous Epithelial Cells Few /hpf (<5) Urine Bacteria Few /hpf (None Seen) Urine Mucus Few (None Seen) Urine Glucose Normal mg/dL (Normal) Test 05/05/24 16:44 05/05/24 15:26 Troponin I High Sensitivity 5 ng/L (</=34) Lactic Acid Level 1.2 mmol/L (0.4-2.0) Total Bilirubin 0.5 mg/dL (0.2-1.0) Aspartate Amino Transferase (AST) 36 U/L (13-40) Alanine Aminotransferase (ALT) 25 U/L (7-40) Alkaline Phosphatase 91 U/L (46-116) B-Type Natriuretic Peptide 175.85 pg/mL (0-100) Total Protein 6.6 g/dL (5.7-8.2) Albumin 4.6 g/dL (3.2-4.8) Other Laboratory Tests 05/08/24 05:49 Brief Hx & Hospital Course: HPI: 64-year-old female with past medical history of COPD,Nicotine dependency, drug abuse (marijuana ) asthma, dyslipidemia who presented to the hospital with a chief complaint of shortness of breaths. Patient reported shortness of breaths started 2 before admission, she just came to [place] from [place] where she lives. Hospital course: Patient presents to the hospital with the chief complaint of pain located in the middle lobes chest with moderate intensity and nonradiating and progressively getting worse despite using albuterol at home she also reports having losing weight for the past couple of weeks and 1 episode of hemoptysis. Patient also started on antibiotics and breathing treatments. CT scan of the chest was performed and results was unremarkable it showed some emphysematous changes, CT of the neck shows some nodules in his thyroid for which ultrasound was ordered that confirmed thyroid nodules T-RADS 2 and 3 at this point it is not indicative for fine-needle aspiration but she was advised to continue following up with the her primary care doctor in [place]. Vital signs blood test were normal for which ceftriaxone was discontinued by the patient will be discharged and advised to complete this treatment with the azithromycin. Before discharging the patient we performed a 6 minutes walking test after which she was saturating and 90%. Disposition: Discharge to home Goals of care discussed with the patient for 32 minutes Code status: Full code Operations or Procedures [place] [address] Ph: [phone] DIAGNOSTIC IMAGING Diagnostic Imaging Report : [id number] Signed PATIENT: AYDIN MARTINEZ ACCT: [id number] UNIT: [id number] : 1960 LOC: [facility] ROOM / BED: [facility] / A AGE / SEX: 64 / F ADM STATUS: ADM IN SERVICE 1416 ORDERING PHYSICIAN: BONNIE PERRY RESIDENT PROCEDURE(s): THYDU - THYROID REASON: multiple thyroid nodules ORDER NUMBER(s): [id number], ACCESSION NUMBER(s): [id number] ULTRASOUND SOFT TISSUE HEAD AND NECK CLINICAL INDICATION: Thyroid nodules TECHNIQUE: Multiple real time sonographic images of the thyroid were obtained. Comparison: None FINDINGS: The right thyroid gland measures 4.4 x 1.8 x 1.2 cm. The left thyroid gland measures approximately 3.9 x 2.0 x 1.7 cm. The isthmus measures 0.6 cm. Hypoechoic nodule in the right upper thyroid measures 0.3 cm, TR 3. Benign colloid cysts are present in the right upper pole measures 0.7 cm and left upper pole measuring 1.2 cm, TR 2. IMPRESSION: Hypoechoic nodule in the right upper thyroid measures 0.3 cm, TR 3. Benign colloid cysts are present in the right upper pole measures 0.7 cm and left upper pole measuring 1.2 cm, TR 2. [employer] TI-RADS Categories and Recommendations (2017): TR1: 0 points, Benign, No FNA TR2: 2 points, Not suspicious, No FNA TR3: 3 points, Mildly suspicious, FNA if > or = 2.5 cm, Follow if > or = 1.5 cm TR4: 4-6 points, Moderately Suspicious, FNA if > or = 1.5 cm, Follow if > or = 1.0 cm TR5: 7+ points, Highly Suspicious, FNA if > or = 1.0 cm, Follow if > or = 0.5 cm Follow-up ultrasound guidelines: TR5: yearly for 5 years, if no growth or change in TI-RADS level TR4: at 1, 2, 3 and 5 years, if no growth or change in TI-RADS level TR3: at 1, 3 and 5 years, if no growth or change in TI-RADS level If increased but below threshold for FNA, repeat in one year. Source: ACR Thyroid Imaging, Reporting and Data System (TI-RADS): White Paper of the ACR TI-RADS Committee. Daryn et al., J Am Perry Radiol 2017;14:587-595. ATED BY: LLOYD AVILEZ MD DICTATED DATE/TIME: 05/07/241518 SIGNED BY: LLOYD AVILEZ MD SIGNED DATE/TIME: 05/07/241518 CC: [place] [address] Ph: [phone] DIAGNOSTIC IMAGING Diagnostic Imaging Report : [id number] Signed PATIENT: AYDIN MARTINEZ ACCT: [id number] UNIT: [id number] : 1960 LOC: [facility] ROOM / BED: [facility] / A AGE / SEX: 64 / F ADM STATUS: ADM IN SERVICE 0700 ORDERING PHYSICIAN: BONNIE PERRY RESIDENT PROCEDURE(s): NK2CT - NECK WITH CONTRAST SOFT REASON: RO STRUCTURAL ABNORMALITIES ORDER NUMBER(s): [id number], ACCESSION NUMBER(s): [id number] Accession Number: [id number] Clinical History: RO STRUCTURAL ABNORMALITIES Comparison: None Technique: After the intravenous administration of intravenous contrast, multi- slice CT scan of the neck was performed without complication. Radiation Dose Information: CT Dose: CTDI volume is 27.58 mGy. Dose-length product is 1673.3 mGy*cm Findings: The glottis is closed limiting evaluation of the larynx. Otherwise, the nasopharynx, oropharynx, hypopharynx, esophagus, and larynx demonstrate normal patency and contour without evidence of a soft tissue mass at this time. Bilateral laryngeal ventricles are noted. Bilaterally, the parotid, submandibular, and sublingual glands are normal in their size, shape, and attenuation without evidence of calcification. The visualized oral tongue, tongue base, and floor of mouth regions demonstrate no obvious mass or abnormal enhancement. Evaluation of the lateral spaces of the neck demonstrates no obvious masses at this time or significant lymphadenopathy. Multiple thyroid nodules, largest on the left measuring up to 1 cm. Moderate emphysematous changes of the lung apices. Moderate to severe degenerative changes of the cervical spine. Impression: Glottis is closed limiting evaluation of the larynx. Multiple thyroid nodules. Otherwise, unremarkable contrast-enhanced CT of the neck. ATED BY: MARYBETH NAVARRO DO DICTATED DATE/TIME: 05/07/24 130 SIGNED BY: MARYBETH NAVARRO DO SIGNED DATE/TIME: 05/07/24 1304 CC: [place] [address] Ph: [phone] DIAGNOSTIC IMAGING Diagnostic Imaging Report : [id number] Signed PATIENT: AYDIN MARTINEZ ACCT: [id number] UNIT: [id number] : 1960 LOC: [facility] ROOM / BED: [facility] / A AGE / SEX: 64 / F ADM STATUS: ADM IN SERVICE 0700 ORDERING PHYSICIAN: BONNIE PERRY RESIDENT PROCEDURE(s): CX2CT - CHEST WITHOUT CONTRAST REASON: RO MALIGNANCY ORDER NUMBER(s): [id number], ACCESSION NUMBER(s): [id number] Procedure: CT CHEST WITHOUT CONTRAST Study Date and Requested Time: 05/07/2024 10:55 AM History: RO MALIGNANCY Comparison: None Dose: CTDI: 27.58 mGy DLP: 1673.3 mGycm Technique: Multiplanar images obtained through the chest without contrast Findings: Limited evaluation of the thyroid nodules given noncontrast imaging. Heart size is within normal limits. No evidence of aortic aneurysm. Mild atherosclerotic calcification of the aorta. Pulmonary trunk is normal in size. No significant lymphadenopathy. Wvuj-in-jkbzhfgv upper lobe predominant vpyv-ym-fjnohook biapical predominant emphysematous changes. No pneumothorax. Right middle lobe, lingula and bilateral lower lobe atelectasis. Trace right-sided pleural effusion. Status post cholecystectomy. Otherwise partial view of the upper abdomen is unremarkable. The soft tissues are unremarkable. Destructive osseous lesions are noted. Impression: Hhlt-yq-dndfqvdt biapical predominant emphysematous changes. Trace right-sided pleural effusion with bilateral lower lobe, lingula and right middle lobe atelectasis. ATED BY: MARYBETH NAVARRO DO DICTATED DATE/TIME: 05/07/24 131 SIGNED BY: MARYBETH NAVARRO DO SIGNED DATE/TIME: 05/07/24 131 CC: [place] [address] Ph: [phone] DIAGNOSTIC IMAGING Diagnostic Imaging Report : [id number] Signed PATIENT: AYDIN MARTINEZ ACCT: [id number] UNIT: [id number] : 1960 LOC: ER ROOM / BED: / AGE / SEX: 64 / F ADM STATUS: REG ER SERVICE 1500 ORDERING PHYSICIAN: TRELL HOOVER MD PROCEDURE(s): CXRP - CHEST PORTABLE REASON: sob ORDER NUMBER(s): [id number], ACCESSION NUMBER(s): [id number] INDICATION: sob TECHNIQUE: Frontal view of the chest. COMPARISON: None FINDINGS: . The heart and mediastinal contours are grossly unremarkable. There is no evidence of pleural disease. The lungs are clear. The bony structures of the chest are intact without fracture. IMPRESSION: 1. No evidence of acute disease. ATED BY: TRUONG MARQUEZ MD DICTATED DATE/TIME: 05/05/24 152 SIGNED BY: TRUONG MARQUEZ MD SIGNED DATE/TIME: 05/05/241524 CC: [place] [address] Ph: [phone] DIAGNOSTIC IMAGING Diagnostic Imaging Report : [id number] Signed PATIENT: AYDIN MARTINEZ ACCT: [id number] UNIT: [id number] : 1960 LOC: ER ROOM / BED: / AGE / SEX: 64 / F ADM STATUS: REG ER SERVICE 1500 ORDERING PHYSICIAN: TRELL HOOVER MD PROCEDURE(s): ABPL - CT AB PEL WO CON-NO ORAL OR IV REASON: rlq pain ORDER NUMBER(s): [id number], ACCESSION NUMBER(s): [id number] Exam: CT CT AB PEL WO CON-NO ORAL OR IV History: rlq pain Comparison Study: None available at time of dictation. Technique: Multidetector spiral CT of the abdomen and pelvis was performed from lung bases to pubic symphysis. Imaging was performed without intravenous contrast. Coronal and sagittal multiplanar reformats were obtained from the axial data set by the technologist. Radiation Dose : 1. Abdomen/Pelvis: CTDIvol 9.46 mGy, DLP 497.02 mGy*cm. Findings: Evaluation of vasculature and solid organs is limited due to lack of intravenous contrast use. Lung Bases: Bibasilar subsegmental atelectasis. Visualized portions of the heart and pericardium are unremarkable. Liver: The liver is normal in size. No focal lesions. Gallbladder and Biliary Tree: The gallbladder is surgically absent. No intrahepatic or extrahepatic biliary ductal dilatation. Spleen: Unremarkable Pancreas: The pancreas is grossly unremarkable. Adrenal Glands: Unremarkable Kidneys: Kidneys are unremarkable without calculi or hydronephrosis. GI tract: The stomach is grossly normal in appearance. No evidence of small bowel wall thickening or abnormal dilatation to suggest bowel obstruction. The colon is unremarkable. The appendix is not visualized, however no inflammatory changes in the right lower quadrant to suggest acute appendicitis. Peritoneum/mesentery/retroperitoneum. No evidence of free intraperitoneal air. No ascites. No evidence of suspicious lymphadenopathy. Abdominal Wall: Unremarkable. Vasculature: The visualized abdominal aorta is normal in size and caliber. Evaluation of abdominal and pelvic vessels is limited due to lack of intravenous contrast. Urinary Bladder: Grossly unremarkable for degree of distention. Pelvic Organs: Unremarkable Musculoskeletal: No aggressive focal bony lesions, acute fractures or dislocation. Posterior instrumented fusion at L4-L5. IMPRESSION: 1. No acute abdominal or pelvic findings. ATED BY: JOSUE AYALA MD DICTATED DATE/TIME: 05/05/24 153 SIGNED BY: JOSUE AYALA MD SIGNED DATE/TIME: 05/05/24 153 CC: Condition at Discharge: Fair Final Diagnosis/Problems List #Acute respiratory distress due to COPD exacerbation #Rule out community-acquired pneumonia #Hemoptysis #Pulmonary embolism, ruled out, well score unlikely, D-dimer negative. #Dysphonia likely structural #Hypoechoic nodule in the right upper thyroid measures 0.3 cm, TR 3. #Benign colloid cysts are present in the right upper pole measures 0.7 cm and left upper pole measuring 1.2 cm, TR 2. #Cervical lymphadenopathies #Acute kidney injury on chronic kidney disease stage 3b #aortic calcifications #Hypertension #Mild mitral regurgitation #History of kidney stones #Chronic pain syndrome (back pain ) #Moderate to severe degenerative changes of the cervical spine, seen #Nicotine dependency # type 1 obesity Discharge Disposition: Home SNF Discharge Will this Physician continue t: No Discharge Instruct/Medications Diet: Cardiac 2g Na,low cholest Activity: No Restrictions, As Tolerated Follow Up/Referral: follow up with pcp within 2 weeks Medications: script to pharmacy Discharge Statement: "Patient was advised to return to the ER or call 911 if any headaches, dizziness, shortness of breath, chest pain, abdominal pain, bleeding, fevers, or worsening of medical condition. Patient was counseled about treatment plan, medications, possible side effects, patientverbalized understanding. All questions were answered to the best of my ability. This discharge took greater then 30 minutes in planning, reviewing documentation, counseling the patient, and discussing with other team members." ASSESSMENT ASSESSMENT Assessment copd exacerbation thyroid nodules TRAD 2 and 3 Date of Service: May 08, 2024 Billing Provider: SARI HUDSON MD Common Visit Codes: 43813-BHM/OBS DISCH DAY >30min BONNIE PERRY RESIDENT May 08, 2024 15:37 SARI HUDSON MD May 13, 2024 15:24
== END 2024-05-08 16:58 | disposition home or self-care (01) | DRG 133 ==
LOC: ER 14:24 → OVERFLOW 20:01 → EAST 05-06 04:05
PROVIDERS: ADMIT Student in an Organized Health Care Education/Training Program; ATTEND Emergency Medicine
DX: J96.01 Acute respiratory failure with hypoxia (principal); N17.0 Acute kidney failure with tubular necrosis; J15.69 Pneumonia due to other Gram-negative bacteria; J44.0 Chronic obstructive pulmonary disease with (acute) lower respiratory infection; J44.1 Chronic obstructive pulmonary disease with (acute) exacerbation; J15.9 Unspecified bacterial pneumonia; R04.2 Hemoptysis; F11.20 Opioid dependence, uncomplicated; I12.9 Hypertensive chronic kidney disease with stage 1 through stage 4 chronic kidney disease, or unspecified chronic kidney disease; N18.32 Chronic kidney disease, stage 3b; E66.3 Overweight; I34.0 Nonrheumatic mitral (valve) insufficiency; F17.210 Nicotine dependence, cigarettes, uncomplicated; G89.4 Chronic pain syndrome; R49.0 Dysphonia; E78.5 Hyperlipidemia, unspecified; Z20.822 Contact with and (suspected) exposure to COVID-19; F12.10 Cannabis abuse, uncomplicated; Z90.710 Acquired absence of both cervix and uterus; Z87.442 Personal history of urinary calculi; Z90.49 Acquired absence of other specified parts of digestive tract; Z88.6 Allergy status to analgesic agent; Z88.1 Allergy status to other antibiotic agents; Z88.5 Allergy status to narcotic agent; Z88.8 Allergy status to other drugs, medicaments and biological substances; Z79.899 Other long term (current) drug therapy; Z79.1 Long term (current) use of non-steroidal anti-inflammatories (NSAID); Z68.29 Body mass index [BMI] 29.0-29.9, adult; Z71.6 Tobacco abuse counseling
CPT/HCPCS: 36415; 70491; 71045; 71250; 74176; 76536; 80048; 80053; 81001; 83036; 83605; 83880; 84439; 84443; 84481; 84484; 85007; 85025; 85027; 85379; 85610; 86664; 87040; 87081; 87426; 87804; 93005; 93306; 94640; G0378; J2405